=== PATIENT | male | born 1950 | race Caucasian/White ===

== ENCOUNTER 2024-02-24 01:06 | Inpatient (IN) | payer OTHER ==
[2024-02-24] MEDS ORDERED: Furosemide 40 MG (4 mL) VIAL ONE (01:46)
[2024-02-24] MEDS ORDERED: Magnesium 2 GM/50 ML BAG (IN WATER) ONE (01:46)
[2024-02-24] MEDS ORDERED: methylPREDNISolone Sod Succ/PF 125 MG/2 ML VIAL ONE (01:47)
[2024-02-24] MEDS ORDERED: Sodium Chloride 0.9% 100 ML ONE (01:47)
[2024-02-24] MEDS ORDERED: Cefepime 2 GM VIAL ONE (01:47)
[2024-02-24 01:52] LABS: #Basophils Less than 0.03 10x3/uL (0.0-0.2); %Basophils 0.3 % (0.0-1.0); %Eosinophils 0.4 % (0.0-10.0); %Lymphocytes 12.1 % (21.0-51.0); %Monocytes 4.1 % (0.0-10.0); %Neutrophils 82.7 % (42.0-75.0); Hematocrit 36.5 % (42.0-52.0); Hemoglobin 11.4 g/dL (14.0-18.0); Mean Corpuscular HGB CONC 31.2 g/dL (32.0-36.0); Mean Corpuscular Hemoglobin 31.6 pg (27.0-31.0); Mean Corpuscular Volume 101.1 fL (78.0-98.0); Mean Platelet Volume 10.2 fL (7.4-10.4); Platelet Count 220 10x3/uL (130-400); RBC Distribution Width 13.6 % (11.5-14.5); Red Blood Cell (RBC) Count 3.61 mill/uL (4.70-6.10)
[2024-02-24] MEDS ORDERED: Ipratropium/Albuterol 3 ML NEB ONE (01:52)
[2024-02-24] MEDS ORDERED: Albuterol 2.5 MG (3 mL) NEB ONE (01:52)
[2024-02-24] MEDS ORDERED: Albuterol 2.5 MG (0.5 mL) NEB ONE (01:52)
[2024-02-24 02:33] LABS: ALT (SGPT) 11 U/L (8-55); AST (SGOT) 19 U/L (5-34); Albumin 3.2 g/dL (3.4-4.8); Alkaline Phosphatase 85 U/L (40-110); Anion Gap 13 mmol/L (10-20); BUN (Urea Nitrogen) 23 mg/dL (8.4-25.7); Bilirubin, Total 0.4 mg/dL (0.2-1.2); Calc. Creatinine Clearance 0 mL/min (70-130); Calcium 8.7 mg/dL (7.8-10.44); Carbon Dioxide 23 mmol/L (23-31); Chloride 111 mmol/L (98-107); Estimated GFR 58; Globulin 3.7 g/dL (2.4-3.5); Glucose 108 mg/dL (83-110); Magnesium 1.6 mg/dL (1.6-2.6); Potassium 3.4 mmol/L (3.5-5.1); Protein, Total 6.9 g/dL (5.8-8.1); Sodium 144 mmol/L (136-145)
[2024-02-24 02:38] LABS: Troponin I 0.085 ng/mL (< 0.028)
[2024-02-24] MEDS ORDERED: NOREPINEPHRINE 8 MG/250 ML-D5W 0 ML ONE (03:08)
[2024-02-24 04:03] LABS: Bacteria/HPF None Seen HPF (None Seen); Bilirubin Negative (Negative); Blood, Urine Negative (Negative); CAUTI Indications for Culture Alt mental st,lethar; Clarity Clear (Clear); Glucose, Urine (Dipstick) Normal (Negative); Ketone, Urine Negative (Negative); Leukocyte Negative Leu/uL (Negative); Nitrite Negative (Negative); Protein, Urine (Dipstick) Negative (Neg-Trace); RBC/HPF 0-3 HPF (0-3); Specific Gravity, Urine 1.003 (1.002-1.036); Squamous Epithelial None Seen HPF (0-3); Urobilinogen Normal mg/dL (Less than 2); WBC/HPF 0-3 HPF (0-3); pH, Urine 5.5 (5.0-9.0)
[2024-02-24 04:07] LABS: Urine Culture Reflex No No
[2024-02-24] MEDS ORDERED: Acetaminophen 650 MG Suppository PR PRN (04:32)
[2024-02-24] MEDS ORDERED: Ondansetron ODT 4 MG TAB PO PRN (04:32)
[2024-02-24] MEDS ORDERED: Ondansetron PF 4 MG/2 ML Vial IVP PRN (04:32)
[2024-02-24] MEDS ORDERED: traMADol HCl 50 MG TAB PO PRN ×2 (04:32)
[2024-02-24] MEDS ORDERED: Ipratropium/Albuterol 3 ML NEB NEB PRN (04:44)
[2024-02-24 07:32] LABS: Lactic Acid 6.28 mmol/L (0.5-2.2)
[2024-02-24] MEDS: Vancomycin (BATCH) 2.5 GM in Premix 1 BAG IVPB SCH (07:37)
[2024-02-24 07:41] VITALS: BMI 32.8
[2024-02-24] MEDS: Lactated Ringer's 1,000 ML IV SCH (07:45)
[2024-02-24] MEDS: Azithromycin 500 MG in Sodium Chloride 0.9% 250 ML 250 ML IVPB SCH (07:48)
[2024-02-24] MEDS: methylPREDNISolone Sod Succ 40 MG VIAL IVP SCH ×2 (07:51→10:32)
[2024-02-24] MEDS: cefTRIAXone\\ROCEPHIN 2 GM in Sodium Chloride 0.9% 100 ML IVPB SCH (08:06)
[2024-02-24 08:21] LABS: Troponin I 0.085 ng/mL (< 0.028)
[2024-02-24] MEDS: Ipratropium/Albuterol 3 ML NEB NEB SCH (08:48)
[2024-02-24] MEDS ORDERED: Vancomycin 1.5 GM in Sodium Chloride 0.9% 250 ML 300 ML IVPB SCH (09:00)
[2024-02-24] MEDS ORDERED: Iopamidol-370 76% 500 ML MDV (1 ML CHARGE) ONE (09:07)
[2024-02-24 09:35] LABS: Actual Bicarbonate (HCO3v) 17.5 mEq/L (22-28); Base Excess -7.3 mEq/L (-2.0 to +3.0); Calcium, Ionized (venous) 1.04 mmol/L (1.16-1.32); Chloride (VBG) 108 mmol/L (98-106); Hematocrit-VBG 33 % (42.0-52.0); Hemoglobin (Hb) 11.2 g/dL (12.6-17.4); Potassium (VBG) 3.61 mmol/L (3.70-5.30); pH (venous) 7.343 (7.32-7.43)
[2024-02-24] MEDS: Famotidine 20 MG TAB PO SCH (10:31)
[2024-02-24] MEDS: Aspirin 81 mg Enteric Coated Tablet PO SCH (10:31)
[2024-02-24] MEDS: Pantoprazole 40 MG VIAL IVP SCH (10:32)
[2024-02-24] MEDS: Enoxaparin 40 MG (0.4 mL) SYRINGE SC SCH (10:32)
[2024-02-24 12:12] LABS: Troponin I 0.051 ng/mL (< 0.028)
[2024-02-24 14:06] LABS: Lactic Acid 7.08 mmol/L (0.5-2.2)
[2024-02-24] MEDS ORDERED: Vancomycin (BATCH) 1.5 GM in Premix 1 BAG IVPB SCH ×2 (16:00→16:30)
[2024-02-24] MEDS: Vancomycin (BATCH) 1.5 GM in Premix 1 BAG IVPB SCH (20:33)
[2024-02-25] MEDS: Acetaminophen 325 MG TAB PO PRN (05:18)
[2024-02-25 05:31] LABS: Hematocrit 30.7 % (42.0-52.0); Hemoglobin 9.9 g/dL (14.0-18.0); Mean Corpuscular HGB CONC 32.2 g/dL (32.0-36.0); Mean Corpuscular Volume 99.4 fL (78.0-98.0); Mean Platelet Volume 10.7 fL (7.4-10.4); Platelet Count 177 10x3/uL (130-400); RBC Distribution Width 14.3 % (11.5-14.5); Red Blood Cell (RBC) Count 3.09 mill/uL (4.70-6.10)
[2024-02-25 05:47] LABS: Lactic Acid 2.78 mmol/L (0.5-2.2)
[2024-02-25 05:49] LABS: Vancomycin, Random 28.6 ug/mL (See Comment)
[2024-02-25 05:51] LABS: Anion Gap 10 mmol/L (10-20); BUN (Urea Nitrogen) 27 mg/dL (8.4-25.7); Calc. Creatinine Clearance 75 mL/min (70-130); Calcium 8.8 mg/dL (7.8-10.44); Carbon Dioxide 27 mmol/L (23-31); Chloride 107 mmol/L (98-107); Estimated GFR 59; Glucose 111 mg/dL (83-110); Potassium 3.9 mmol/L (3.5-5.1); Sodium 140 mmol/L (136-145)
[2024-02-25 06:29] LABS: Anisocytosis SLIGHT = 6-15 cells HPF (0-5); Band 23 % (5-11); Dohle Bodies SLIGHT; Lymphocytes 2 % (21-51); Monocytes 3 % (0-10); Neutrophil 72 % (42-75); Platelet Adequacy Comment Platelets Normal; Polychromasia SLIGHT = 2-3 cells HPF (0-2); Toxic Granulation SLIGHT
[2024-02-25] MEDS: FLU (Fluad Triv) TS24-25 (65UP)/MF59C/PF 45 MCG/0.5 ML Syringe IM ONE (12:42)
[2024-02-25] MEDS: Vancomycin (BATCH) 1.25 GM in Premix 1 BAG IVPB SCH (12:43)
[2024-02-25 15:14] VITALS: BMI 34.1
[2024-02-25] MEDS: Ampicillin/Sulbactam 3 GM in Sodium Chloride 0.9% 100 ML IVPB SCH (23:07)
[2024-02-25] MEDS ORDERED: Ampicillin/Sulbactam 3 GM in Sodium Chloride 0.9% 100 ML IVPB SCH (23:59)
[2024-02-27 07:06] LABS: Anion Gap 13 mmol/L (10-20); BUN (Urea Nitrogen) 24 mg/dL (8.4-25.7); Calc. Creatinine Clearance 116 mL/min (70-130); Calcium 8.9 mg/dL (7.8-10.44); Carbon Dioxide 22 mmol/L (23-31); Chloride 110 mmol/L (98-107); Estimated GFR 91; Glucose 103 mg/dL (83-110); Potassium 3.6 mmol/L (3.5-5.1); Sodium 141 mmol/L (136-145)
[2024-02-27 07:08] LABS: Hematocrit 29.5 % (42.0-52.0); Hemoglobin 9.4 g/dL (14.0-18.0); Mean Corpuscular HGB CONC 31.9 g/dL (32.0-36.0); Mean Corpuscular Hemoglobin 31.8 pg (27.0-31.0); Mean Corpuscular Volume 99.7 fL (78.0-98.0); Mean Platelet Volume 10.4 fL (7.4-10.4); Platelet Count 173 10x3/uL (130-400); RBC Distribution Width 14.3 % (11.5-14.5); Red Blood Cell (RBC) Count 2.96 mill/uL (4.70-6.10)
[2024-02-27 07:09] LABS: Lactic Acid 0.88 mmol/L (0.5-2.2)
[2024-02-27 07:34] LABS: Band 13 % (5-11); Burr Cells MODERATE= 6-15 cells HPF (0-1); Eosinophils 1 % (0-10); Hypochromia SLIGHT = 6-15 cells HPF (0-5); Lymphocytes 5 % (21-51); Macrocytosis SLIGHT = 6-15 cells HPF (0-5); Monocytes 3 % (0-10); Neutrophil 78 % (42-75); Ovalocytes SLIGHT = 2-5 cells HPF (0-1); Platelet Adequacy Comment Platelets Normal; Polychromasia SLIGHT = 2-3 cells HPF (0-2); Target Cells SLIGHT = 2-5 cells HPF (0-1)
[2024-02-27] MEDS: Potassium Chloride 20 MEQ TAB PO SCH (09:19)
[2024-02-27] MEDS: methylPREDNISolone Sod Succ 40 MG VIAL IVP SCH (09:21)
[2024-02-28 05:32] LABS: #Basophils 0.03 10x3/uL (0.0-0.2); %Basophils 0.4 % (0.0-1.0); %Eosinophils 0.7 % (0.0-10.0); %Lymphocytes 13.8 % (21.0-51.0); %Monocytes 10.3 % (0.0-10.0); %Neutrophils 74.3 % (42.0-75.0); Hematocrit 28.4 % (42.0-52.0); Hemoglobin 9.3 g/dL (14.0-18.0); Mean Corpuscular HGB CONC 32.7 g/dL (32.0-36.0); Mean Corpuscular Hemoglobin 31.1 pg (27.0-31.0); Mean Platelet Volume 11.9 fL (7.4-10.4); Platelet Count 165 10x3/uL (130-400); RBC Distribution Width 14.5 % (11.5-14.5); Red Blood Cell (RBC) Count 2.99 mill/uL (4.70-6.10)
[2024-02-28 05:41] LABS: Anion Gap 12 mmol/L (10-20); BUN (Urea Nitrogen) 27 mg/dL (8.4-25.7); Calc. Creatinine Clearance 94 mL/min (70-130); Calcium 8.7 mg/dL (7.8-10.44); Carbon Dioxide 21 mmol/L (23-31); Chloride 112 mmol/L (98-107); Estimated GFR 77; Glucose 100 mg/dL (83-110); Magnesium 2.1 mg/dL (1.6-2.6); Potassium 3.9 mmol/L (3.5-5.1); Sodium 141 mmol/L (136-145)
[2024-02-28] MEDS ORDERED: AFRIN NASAL MIST 15 ML BOT NS PRN (09:18)
[2024-02-28] MEDS ORDERED: Oxymetazoline HCl 0.05% (30 ML BOT) NS PRN (09:22)
[2024-02-28] MEDS: predniSONE 20 MG TAB PO SCH (09:23)
[2024-02-29 04:38] LABS: #Basophils 0.04 10x3/uL (0.0-0.2); %Basophils 0.5 % (0.0-1.0); %Eosinophils 2.1 % (0.0-10.0); %Monocytes 8.7 % (0.0-10.0); %Neutrophils 69.8 % (42.0-75.0); Hematocrit 32.6 % (42.0-52.0); Hemoglobin 10.4 g/dL (14.0-18.0); Mean Corpuscular HGB CONC 31.9 g/dL (32.0-36.0); Mean Corpuscular Hemoglobin 31.4 pg (27.0-31.0); Mean Corpuscular Volume 98.5 fL (78.0-98.0); Mean Platelet Volume 10.8 fL (7.4-10.4); Platelet Count 249 10x3/uL (130-400); RBC Distribution Width 14.2 % (11.5-14.5); Red Blood Cell (RBC) Count 3.31 mill/uL (4.70-6.10)
[2024-02-29 04:52] LABS: Anion Gap 10 mmol/L (10-20); BUN (Urea Nitrogen) 24 mg/dL (8.4-25.7); Calc. Creatinine Clearance 91 mL/min (70-130); Calcium 8.9 mg/dL (7.8-10.44); Carbon Dioxide 26 mmol/L (23-31); Chloride 111 mmol/L (98-107); Estimated GFR 74; Glucose 90 mg/dL (83-110); Magnesium 2.1 mg/dL (1.6-2.6); Potassium 4.1 mmol/L (3.5-5.1); Sodium 143 mmol/L (136-145)
[2024-02-29] MEDS: Furosemide 40 MG TAB PO SCH (22:37)
[2024-03-01] MEDS: predniSONE 5 MG TAB PO SCH (07:51)
[2024-03-01] MEDS: Furosemide 40 MG TAB PO SCH (15:11)
[2024-03-01] MEDS: Famotidine 20 MG TAB PO SCH (21:27)
[2024-03-02 16:33] VITALS: BP 131/80; TEMP 98.5
== END 2024-03-02 17:22 | DRG 871 ==
LOC: ERS 01:06 → SUATTDRO 01:06 → ERHOLD 04:30 → IMCU/EMU 06:36 → 2NO 02-26 22:59 → MSONC 02-29 17:39
PROVIDERS: ADMIT Family Medicine; ATTEND Student in an Organized Health Care Education/Training Program
PROC: 3E03329 Introduction of Other Anti-infective into Peripheral Vein, Percutaneous Approach (ICD-10-PCS; principal; 2024-02-24)
PROC: 3E033XZ Introduction of Vasopressor into Peripheral Vein, Percutaneous Approach (ICD-10-PCS; 2024-02-24)
DX: A40.9 Streptococcal sepsis, unspecified (principal); G93.41 Metabolic encephalopathy; R65.21 Severe sepsis with septic shock; J69.0 Pneumonitis due to inhalation of food and vomit; J96.01 Acute respiratory failure with hypoxia; J44.1 Chronic obstructive pulmonary disease with (acute) exacerbation; I50.22 Chronic systolic (congestive) heart failure; L03.115 Cellulitis of right lower limb; N40.0 Benign prostatic hyperplasia without lower urinary tract symptoms; M19.90 Unspecified osteoarthritis, unspecified site; K21.9 Gastro-esophageal reflux disease without esophagitis; R04.0 Epistaxis; B35.1 Tinea unguium; K40.90 Unilateral inguinal hernia, without obstruction or gangrene, not specified as recurrent; Z79.82 Long term (current) use of aspirin; Z79.899 Other long term (current) drug therapy; Z79.84 Long term (current) use of oral hypoglycemic drugs
CPT/HCPCS: 36415; 36416; 70450; 71045; 71275; 74176; 80048; 80053; 80202; 81001; 82805; 83605; 83735; 83880; 84484; 85025; 87040; 87077; 87081; 87086; 87149; 87186; 87428; 93005; 93306; 94640; 94644; 94660; 94760; 96361; 96365; 96366; 96375; J0295; J0456; J0692; J0696; J1650; J1940; J2470; J2919; J3370; J3475; J7050; J7120; J7512; J7611; J7620; Q9967

== ENCOUNTER 2024-03-21 17:03 | Inpatient (IN) | payer OTHER ==
[2024-03-22 00:30] VITALS: BMI 30.5
[2024-03-22] MEDS: Acetaminophen 325 MG TAB PO SCH (02:20)
[2024-03-22] MEDS: Cefepime 1 GM in Sodium Chloride 0.9% 100 ML IVPB SCH (02:20)
[2024-03-22] MEDS: Vancomycin (BATCH) 2.5 GM in Premix 1 BAG IVPB SCH (02:21)
[2024-03-22] MEDS: Vancomycin (BATCH) 1.5 GM in Premix 1 BAG IVPB SCH (02:31)
[2024-03-22 04:52] LABS: ALT (SGPT) 9 U/L (8-55); AST (SGOT) 21 U/L (5-34); Albumin 1.9 g/dL (3.4-4.8); Alkaline Phosphatase 84 U/L (40-110); Anion Gap 15 mmol/L (10-20); BUN (Urea Nitrogen) 46 mg/dL (8.4-25.7); Calc. Creatinine Clearance 38 mL/min (70-130); Calcium 8.3 mg/dL (7.8-10.44); Carbon Dioxide 16 mmol/L (23-31); Chloride 106 mmol/L (98-107); Estimated GFR 29; Globulin 3.7 g/dL (2.4-3.5); Glucose 119 mg/dL (83-110); Potassium 4.3 mmol/L (3.5-5.1); Protein, Total 5.6 g/dL (5.8-8.1); Sodium 133 mmol/L (136-145)
[2024-03-22] MEDS: Famotidine/PF 20 mg/2ml Vial SLOW IVP SCH (09:25)
[2024-03-22] MEDS: Loratadine 10 MG TAB PO SCH (09:28)
[2024-03-22] MEDS: Aripiprazole 10 MG TAB PO SCH (09:28)
[2024-03-22] MEDS: Cyanocobalamin (Vitamin B-12) 1,000 MCG TAB PO SCH (09:28)
[2024-03-22] MEDS: Famotidine 20 MG TAB PO SCH (09:28)
[2024-03-22] MEDS: Ferrous Sulfate 325 MG TAB PO SCH (09:29)
[2024-03-22] MEDS: Potassium Chloride 20 MEQ TAB PO SCH (09:29)
[2024-03-22] MEDS: predniSONE 5 MG TAB PO SCH (09:29)
[2024-03-22] MEDS: Calcium Carbonate 600 MG + Vit D TAB PO SCH (09:29)
[2024-03-22] MEDS: Aspirin 81 mg Enteric Coated Tablet PO SCH (09:30)
[2024-03-22] MEDS: Sertraline 25 MG TAB PO SCH (09:30)
[2024-03-22] MEDS: Ondansetron PF 4 MG/2 ML Vial IVP PRN (09:30)
[2024-03-22] MEDS: Docusate 100 MG CAP PO SCH (09:31)
[2024-03-22] MEDS: Ondansetron ODT 4 MG TAB PO PRN (09:42)
[2024-03-22 09:47] LABS: Band 34 % (5-11); Eosinophils 2 % (0-10); Lymphocytes 4 % (21-51); Metamyelocyte 1 % (0-0); Monocytes 17 % (0-10); Neutrophil 41 % (42-75); Platelet Adequacy Comment Platelets Normal; Reactive Lymphocytes 2 % (0-10)
[2024-03-22 09:49] LABS: Hematocrit 35.3 % (42.0-52.0); Hemoglobin 11.6 g/dL (14.0-18.0); Mean Corpuscular HGB CONC 32.9 g/dL (32.0-36.0); Mean Corpuscular Hemoglobin 30.6 pg (27.0-31.0); Mean Corpuscular Volume 93.1 fL (78.0-98.0); Platelet Count 214 10x3/uL (130-400); RBC Distribution Width 13.9 % (11.5-14.5); Red Blood Cell (RBC) Count 3.79 mill/uL (4.70-6.10)
[2024-03-22] MEDS ORDERED: Vancomycin Dose by Levels Sliding Scale (Wt 71-99) FS SCH (11:15)
[2024-03-22] MEDS ORDERED: Vancomycin 1 GM in Premix 1 BAG IVPB SCH (12:00)
[2024-03-22] MEDS: Cefepime 2 GM in Sodium Chloride 0.9% 100 ML IVPB SCH (14:50)
[2024-03-22] MEDS: Sodium Bicarbonate 150 MEQ in Dextrose 5% in Water 1,000 ML IV SCH (14:50)
[2024-03-22 20:15] LABS: Vancomycin, Trough 27.6 ug/mL
[2024-03-22] MEDS: Milk Of Magnesia 30 ML UDCUP PO SCH (21:31)
[2024-03-23 04:46] LABS: Hematocrit 33.5 % (42.0-52.0); Hemoglobin 11.1 g/dL (14.0-18.0); Mean Corpuscular HGB CONC 33.1 g/dL (32.0-36.0); Mean Corpuscular Hemoglobin 30.3 pg (27.0-31.0); Mean Corpuscular Volume 91.5 fL (78.0-98.0); Mean Platelet Volume 11.2 fL (7.4-10.4); Platelet Count 238 10x3/uL (130-400); Red Blood Cell (RBC) Count 3.66 mill/uL (4.70-6.10)
[2024-03-23 05:07] LABS: ALT (SGPT) 9 U/L (8-55); AST (SGOT) 18 U/L (5-34); Albumin 1.6 g/dL (3.4-4.8); Alkaline Phosphatase 83 U/L (40-110); Anion Gap 13 mmol/L (10-20); BUN (Urea Nitrogen) 56 mg/dL (8.4-25.7); Bilirubin, Total 0.4 mg/dL (0.2-1.2); Calc. Creatinine Clearance 38 mL/min (70-130); Calcium 8.2 mg/dL (7.8-10.44); Carbon Dioxide 22 mmol/L (23-31); Chloride 103 mmol/L (98-107); Estimated GFR 29; Globulin 3.8 g/dL (2.4-3.5); Glucose 131 mg/dL (83-110); Potassium 4.1 mmol/L (3.5-5.1); Protein, Total 5.4 g/dL (5.8-8.1); Sodium 134 mmol/L (136-145)
[2024-03-23 05:25] LABS: Band 30 % (5-11); Burr Cells SLIGHT = 2-5 cells HPF (0-1); Lymphocytes 5 % (21-51); Monocytes 8 % (0-10); Neutrophil 58 % (42-75); Platelet Adequacy Comment Platelets Normal; Poikilocytosis MODERATE=16-30 cells HPF (0-5)
[2024-03-23] MEDS: Famotidine 20 MG TAB PO SCH (10:02)
[2024-03-23] MEDS: Loperamide HCl 2 MG CAP PO PRN (10:02)
[2024-03-23] MEDS: Sodium Chloride 0.9% 1,000 ML IV SCH (10:03)
[2024-03-23] MEDS: Saccharomyces boulardii 250 MG CAP PO SCH (11:30)
[2024-03-23 21:14] LABS: Vancomycin, Trough 12.7 ug/mL
[2024-03-23] MEDS: Vancomycin HCl 750 MG in Sodium Chloride 0.9% 250 ML 250 ML IVPB SCH (23:29)
[2024-03-24 04:40] LABS: Hematocrit 29.6 % (42.0-52.0); Hemoglobin 9.9 g/dL (14.0-18.0); Mean Corpuscular HGB CONC 33.4 g/dL (32.0-36.0); Mean Corpuscular Hemoglobin 31.2 pg (27.0-31.0); Mean Corpuscular Volume 93.4 fL (78.0-98.0); Mean Platelet Volume 10.4 fL (7.4-10.4); Platelet Count 240 10x3/uL (130-400); RBC Distribution Width 14.1 % (11.5-14.5); Red Blood Cell (RBC) Count 3.17 mill/uL (4.70-6.10)
[2024-03-24 04:51] LABS: Anion Gap 9 mmol/L (10-20); BUN (Urea Nitrogen) 56 mg/dL (8.4-25.7); Calc. Creatinine Clearance 53 mL/min (70-130); Calcium 8.6 mg/dL (7.8-10.44); Carbon Dioxide 24 mmol/L (23-31); Chloride 104 mmol/L (98-107); Estimated GFR 42; Glucose 111 mg/dL (83-110); Potassium 4.9 mmol/L (3.5-5.1); Sodium 132 mmol/L (136-145)
[2024-03-24 05:17] LABS: Anisocytosis SLIGHT = 6-15 cells HPF (0-5); Band 11 % (5-11); Burr Cells SLIGHT = 2-5 cells HPF (0-1); Dohle Bodies SLIGHT; Eosinophils 2 % (0-10); Lymphocytes 7 % (21-51); Monocytes 13 % (0-10); Neutrophil 67 % (42-75); Platelet Adequacy Comment Platelets Normal; Polychromasia SLIGHT = 2-3 cells HPF (0-2); Toxic Granulation SLIGHT
[2024-03-24] MEDS: Saccharomyces boulardii 250 MG CAP PO SCH (09:25)
[2024-03-24] MEDS: Sodium Chloride 0.9% 1,000 ML IV SCH ×2 (13:05→18:00)
[2024-03-24] MEDS: Acetaminophen 650 MG Suppository PR PRN (15:28)
[2024-03-24 21:36] LABS: Vancomycin, Trough 13.2 ug/mL
[2024-03-24] MEDS: Sodium Chloride 0.9% 250 ML IV SCH (21:45)
[2024-03-24] MEDS: Sodium Chloride 0.9% 500 ML IV SCH (21:49)
[2024-03-24] MEDS: Albumin 25% 25 GM (100 mL) BOT IVPB SCH (22:00)
[2024-03-24 22:19] LABS: Hematocrit 27.7 % (42.0-52.0); Mean Corpuscular HGB CONC 32.5 g/dL (32.0-36.0); Mean Corpuscular Hemoglobin 30.9 pg (27.0-31.0); Mean Corpuscular Volume 95.2 fL (78.0-98.0); Mean Platelet Volume 10.4 fL (7.4-10.4); Platelet Count 260 10x3/uL (130-400); RBC Distribution Width 14.5 % (11.5-14.5); Red Blood Cell (RBC) Count 2.91 mill/uL (4.70-6.10)
[2024-03-24 22:25] LABS: ALT (SGPT) 8 U/L (8-55); AST (SGOT) 20 U/L (5-34); Albumin 1.3 g/dL (3.4-4.8); Alkaline Phosphatase 62 U/L (40-110); Anion Gap 8 mmol/L (10-20); BUN (Urea Nitrogen) 50 mg/dL (8.4-25.7); Bilirubin, Total 0.3 mg/dL (0.2-1.2); Calc. Creatinine Clearance 76 mL/min (70-130); Calcium 8.1 mg/dL (7.8-10.44); Carbon Dioxide 20 mmol/L (23-31); Chloride 109 mmol/L (98-107); Estimated GFR 66; Globulin 3.5 g/dL (2.4-3.5); Glucose 129 mg/dL (83-110); Potassium 5.3 mmol/L (3.5-5.1); Protein, Total 4.8 g/dL (5.8-8.1); Sodium 132 mmol/L (136-145)
[2024-03-24 22:50] LABS: Band 9 % (5-11); Burr Cells SLIGHT = 2-5 cells HPF (0-1); Dohle Bodies SLIGHT; Elliptocytes SLIGHT = 2-5 cells HPF (0-1); Hypochromia SLIGHT = 6-15 cells HPF (0-5); Large Platelets 2.9 % (0-5); Lymphocytes 6 % (21-51); Macrocytosis SLIGHT = 6-15 cells HPF (0-5); Metamyelocyte 2 % (0-0); Monocytes 8 % (0-10); Neutrophil 76 % (42-75); Platelet Adequacy Comment Platelets Normal; Polychromasia SLIGHT = 2-3 cells HPF (0-2); Toxic Granulation SLIGHT
[2024-03-24] MEDS: Vancomycin HCl 750 MG in Sodium Chloride 0.9% 250 ML 250 ML IVPB SCH (23:51)
[2024-03-25] MEDS: LOKELMA 10 GM PACKET PO SCH (00:13)
[2024-03-25] MEDS: Albumin 25% 25 GM (100 mL) BOT IVPB SCH ×2 (01:46→23:52)
[2024-03-25 04:17] LABS: Hemoglobin 9.9 g/dL (14.0-18.0); Mean Corpuscular Hemoglobin 30.6 pg (27.0-31.0); Mean Corpuscular Volume 92.6 fL (78.0-98.0); Mean Platelet Volume 10.6 fL (7.4-10.4); Platelet Count 285 10x3/uL (130-400); RBC Distribution Width 14.5 % (11.5-14.5); Red Blood Cell (RBC) Count 3.24 mill/uL (4.70-6.10)
[2024-03-25 04:21] LABS: Anion Gap 9 mmol/L (10-20); BUN (Urea Nitrogen) 50 mg/dL (8.4-25.7); Calc. Creatinine Clearance 83 mL/min (70-130); Calcium 8.4 mg/dL (7.8-10.44); Carbon Dioxide 21 mmol/L (23-31); Chloride 109 mmol/L (98-107); Estimated GFR 73; Glucose 110 mg/dL (83-110); Potassium 4.8 mmol/L (3.5-5.1); Sodium 134 mmol/L (136-145)
[2024-03-25 04:47] LABS: Anisocytosis SLIGHT = 6-15 cells HPF (0-5); Band 34 % (5-11); Dohle Bodies SLIGHT; Eosinophils 2 % (0-10); Hypochromia SLIGHT = 6-15 cells HPF (0-5); Lymphocytes 4 % (21-51); Metamyelocyte 2 % (0-0); Monocytes 8 % (0-10); Neutrophil 50 % (42-75); Platelet Adequacy Comment Platelets Normal; Polychromasia SLIGHT = 2-3 cells HPF (0-2); Vacuoles SLIGHT
[2024-03-25] MEDS ORDERED: Albumin 25% 25 GM (100 mL) BOT IVPB SCH (12:00)
[2024-03-25 12:11] LABS: Actual Bicarbonate (HCO3a) 21.7 mEq/L (22-28); Base Excess (BEa) -2.6 mEq/L (-2.0 to +3.0); CO2 Tension 35.7 mmHg (35.0-45.0); Calcium, Ionized (arterial) 1.27 mmol/L (1.12-1.30); Carboxyhemoglobin (COHb) 1.3 gm% (0.0-3.0); Hematocrit-ABG 31 % (42.0-52.0); Hemoglobin (Hb) 10.7 g/dL (14.0-18.0); Potassium - ABG Lab 5.04 mmol/L (3.70-5.30); pH, Arterial 7.401 (7.35-7.45)
[2024-03-25 12:16] LABS: ALV-art Gradient 47.105 mmHg (0-20); Puncture Site Right Brachial art
[2024-03-25 16:25] LABS: Lactic Acid 1.27 mmol/L (0.5-2.2)
[2024-03-25 17:48] LABS: Troponin I Less than 0.010 ng/mL (< 0.028)
[2024-03-25] MEDS: VANCOMYCIN 1.25 GM/250 ML BAG 1.25 GM in Premix 1 BAG IVPB SCH (17:52)
[2024-03-25] MEDS ORDERED: Furosemide 40 MG in Sodium Chloride 0.9% 90 ML IVPB ONE (19:11)
[2024-03-25] MEDS ORDERED: Furosemide 40 MG (4 mL) VIAL SLOW IVP SCH (19:30)
[2024-03-25] MEDS: Furosemide 40 MG (4 mL) VIAL SLOW IVP SCH (21:25)
[2024-03-25] MEDS: Sodium Chloride 0.9% 500 ML IV SCH (23:51)
[2024-03-26] MEDS: Famotidine/PF 20 mg/2ml Vial SLOW IVP SCH (09:14)
[2024-03-26] MEDS: Famotidine 20 MG TAB PO SCH (09:17)
[2024-03-26 10:04] LABS: Hematocrit 36.3 % (42.0-52.0); Hemoglobin 11.7 g/dL (14.0-18.0); Mean Corpuscular HGB CONC 32.2 g/dL (32.0-36.0); Mean Corpuscular Hemoglobin 30.6 pg (27.0-31.0); Platelet Count 401 10x3/uL (130-400); RBC Distribution Width 14.9 % (11.5-14.5); Red Blood Cell (RBC) Count 3.82 mill/uL (4.70-6.10)
[2024-03-26 10:07] LABS: ALT (SGPT) 11 U/L (8-55); AST (SGOT) 18 U/L (5-34); Albumin 1.9 g/dL (3.4-4.8); Alkaline Phosphatase 72 U/L (40-110); Anion Gap 14 mmol/L (10-20); BUN (Urea Nitrogen) 56 mg/dL (8.4-25.7); Bilirubin, Total 0.5 mg/dL (0.2-1.2); Calc. Creatinine Clearance 65 mL/min (70-130); Calcium 9.4 mg/dL (7.8-10.44); Carbon Dioxide 19 mmol/L (23-31); Chloride 111 mmol/L (98-107); Estimated GFR 54; Globulin 3.6 g/dL (2.4-3.5); Glucose 115 mg/dL (83-110); Potassium 5.2 mmol/L (3.5-5.1); Protein, Total 5.5 g/dL (5.8-8.1); Sodium 139 mmol/L (136-145)
[2024-03-26 10:34] LABS: Anisocytosis SLIGHT = 6-15 cells HPF (0-5); Band 25 % (5-11); Lymphocytes 2 % (21-51); Monocytes 12 % (0-10); Neutrophil 62 % (42-75); Platelet Adequacy Comment Platelets Normal; Poikilocytosis SLIGHT = 6-15 cells HPF (0-5); Polychromasia SLIGHT = 2-3 cells HPF (0-2)
[2024-03-26] MEDS ORDERED: Iopamidol-370 76% 500 ML MDV (1 ML CHARGE) ONE (12:04)
[2024-03-26 14:33] LABS: Actual Bicarbonate (HCO3a) 17.5 mEq/L (22-28); Base Excess (BEa) -6.6 mEq/L (-2.0 to +3.0); CO2 Tension 30.7 mmHg (35.0-45.0); Calcium, Ionized (arterial) 1.36 mmol/L (1.12-1.30); Carboxyhemoglobin (COHb) 1.2 gm% (0.0-3.0); Hematocrit-ABG 35 % (42.0-52.0); Hemoglobin (Hb) 11.8 g/dL (14.0-18.0); O2 Tension (PaO2), arterial 69.3 mmHg (> 70.0); Potassium - ABG Lab 5.06 mmol/L (3.70-5.30); pH, Arterial 7.374 (7.35-7.45)
[2024-03-26 14:35] LABS: ALV-art Gradient 56.315 mmHg (0-20); Puncture Site Right Radial artery
[2024-03-26 14:53] LABS: Lactic Acid 1.62 mmol/L (0.5-2.2)
[2024-03-26 15:00] LABS: Bacteria/HPF None Seen HPF (None Seen); Bilirubin Negative (Negative); Blood, Urine 1+ (Negative); CAUTI Indications for Culture Alt mental st,lethar; Clarity Turbid (Clear); Glucose, Urine (Dipstick) Normal (Negative); Ketone, Urine 10 mg/dL (Negative); Leukocyte Negative Leu/uL (Negative); Nitrite Negative (Negative); Protein, Urine (Dipstick) 100 mg/dL (Neg-Trace); RBC/HPF 0-3 HPF (0-3); Specific Gravity, Urine 1.026 (1.002-1.036); Squamous Epithelial None Seen HPF (0-3); Urobilinogen Normal mg/dL (Less than 2); WBC/HPF 0-3 HPF (0-3); pH, Urine 5.5 (5.0-9.0)
[2024-03-26 15:03] LABS: Urine Culture Reflex No No
[2024-03-26] MEDS: Vancomycin 1 GM in Premix 1 BAG IVPB SCH (17:20)
[2024-03-26] MEDS: Hydrocortisone Sod Succ/PF 100 mg/2 ml Vial IVP SCH (19:23)
[2024-03-26 21:17] LABS: Base Excess (BEa) -4.6 mEq/L (-2.0 to +3.0); Calcium, Ionized (arterial) 1.37 mmol/L (1.12-1.30); Carboxyhemoglobin (COHb) 0.9 gm% (0.0-3.0); Hematocrit-ABG 34 % (42.0-52.0); Hemoglobin (Hb) 11.7 g/dL (14.0-18.0); O2 Tension (PaO2), arterial 73.3 mmHg (> 70.0); Potassium - ABG Lab 5.31 mmol/L (3.70-5.30); pH, Arterial 7.374 (7.35-7.45)
[2024-03-26 21:18] LABS: Puncture Site Left Radial artery
[2024-03-26] MEDS: Albumin 25% 25 GM (100 mL) BOT IVPB SCH (21:18)
[2024-03-26] MEDS: metroNIDAZOLE 500 MG in Premix 1 BAG IVPB SCH (21:18)
[2024-03-26 21:23] LABS: Hematocrit 33.9 % (42.0-52.0); Hemoglobin 11.1 g/dL (14.0-18.0); Mean Corpuscular HGB CONC 32.7 g/dL (32.0-36.0); Mean Corpuscular Hemoglobin 31.2 pg (27.0-31.0); Mean Corpuscular Volume 95.2 fL (78.0-98.0); Mean Platelet Volume 9.9 fL (7.4-10.4); Platelet Count 422 10x3/uL (130-400); Red Blood Cell (RBC) Count 3.56 mill/uL (4.70-6.10)
[2024-03-26 21:34] LABS: Lactic Acid 1.24 mmol/L (0.5-2.2)
[2024-03-26 21:38] LABS: ALT (SGPT) 13 U/L (8-55); AST (SGOT) 22 U/L (5-34); Albumin 1.6 g/dL (3.4-4.8); Alkaline Phosphatase 70 U/L (40-110); Anion Gap 13 mmol/L (10-20); BUN (Urea Nitrogen) 62 mg/dL (8.4-25.7); Bilirubin, Total 0.4 mg/dL (0.2-1.2); Calc. Creatinine Clearance 52 mL/min (70-130); Calcium 9.2 mg/dL (7.8-10.44); Carbon Dioxide 16 mmol/L (23-31); Chloride 114 mmol/L (98-107); Estimated GFR 41; Globulin 3.3 g/dL (2.4-3.5); Glucose 134 mg/dL (83-110); Glucose POC Confirmation 134 mg/dL (83-110); Potassium 5.4 mmol/L (3.5-5.1); Protein, Total 4.9 g/dL (5.8-8.1); Sodium 138 mmol/L (136-145)
[2024-03-26 21:52] LABS: Anisocytosis SLIGHT = 6-15 cells HPF (0-5); Band 15 % (5-11); Burr Cells SLIGHT = 2-5 cells HPF (0-1); Dohle Bodies SLIGHT; Macrocytosis SLIGHT = 6-15 cells HPF (0-5); Metamyelocyte 1 % (0-0); Monocytes 5 % (0-10); Myelocyte 3 % (0-0); Neutrophil 75 % (42-75); Platelet Adequacy Comment Platelets Normal; Poikilocytosis SLIGHT = 6-15 cells HPF (0-5); Polychromasia SLIGHT = 2-3 cells HPF (0-2); Promyelocytes 1 % (0-0); Toxic Granulation MODERATE
[2024-03-27] MEDS: Albumin 25% 25 GM (100 mL) BOT IVPB SCH ×2 (01:17→03:13)
[2024-03-27] MEDS: Sodium Bicarbonate 150 MEQ in Sterile Water 1,000 ML IV SCH (03:54)
[2024-03-27 05:25] LABS: Hematocrit 30.6 % (42.0-52.0); Mean Corpuscular HGB CONC 32.7 g/dL (32.0-36.0); Mean Corpuscular Hemoglobin 30.7 pg (27.0-31.0); Mean Corpuscular Volume 93.9 fL (78.0-98.0); Mean Platelet Volume 10.3 fL (7.4-10.4); Platelet Count 409 10x3/uL (130-400); RBC Distribution Width 15.2 % (11.5-14.5); Red Blood Cell (RBC) Count 3.26 mill/uL (4.70-6.10)
[2024-03-27 05:37] LABS: INR-International Normal Ratio 1.2; Prothrombin Time 15.2 sec (12.0-14.7)
[2024-03-27 05:38] LABS: PTT 36.6 sec (22.9-36.1)
[2024-03-27 05:40] LABS: Anion Gap 15 mmol/L (10-20); BUN (Urea Nitrogen) 66 mg/dL (8.4-25.7); Calc. Creatinine Clearance 48 mL/min (70-130); Calcium 9.5 mg/dL (7.8-10.44); Carbon Dioxide 18 mmol/L (23-31); Chloride 113 mmol/L (98-107); Estimated GFR 38; Glucose 128 mg/dL (83-110); Magnesium 4.7 mg/dL (1.6-2.6); Potassium 5.7 mmol/L (3.5-5.1); Sodium 140 mmol/L (136-145)
[2024-03-27] MEDS ORDERED: Dextrose 50% Abboject 50 ML SYRINGE SLOW IVP PRN (06:04)
[2024-03-27 06:09] LABS: Anisocytosis SLIGHT = 6-15 cells HPF (0-5); Band 15 % (5-11); Burr Cells SLIGHT = 2-5 cells HPF (0-1); Lymphocytes 1 % (21-51); Metamyelocyte 1 % (0-0); Microcytosis SLIGHT = 6-15 cells HPF (0-5); Monocytes 5 % (0-10); Neutrophil 78 % (42-75); Platelet Adequacy Comment Platelets Normal; Polychromasia SLIGHT = 2-3 cells HPF (0-2); Target Cells SLIGHT = 2-5 cells HPF (0-1); Toxic Granulation SLIGHT
[2024-03-27] MEDS: Insulin Regular, Human 100 UNIT/ML 10 ML VIAL IVP SCH (06:28)
[2024-03-27 08:24] LABS: Anion Gap 11 mmol/L (10-20); BUN (Urea Nitrogen) 69 mg/dL (8.4-25.7); Calc. Creatinine Clearance 47 mL/min (70-130); Calcium 9.4 mg/dL (7.8-10.44); Carbon Dioxide 20 mmol/L (23-31); Chloride 113 mmol/L (98-107); Estimated GFR 37; Glucose 137 mg/dL (83-110); Potassium 5.3 mmol/L (3.5-5.1); Sodium 139 mmol/L (136-145)
[2024-03-27 08:26] LABS: ALT (SGPT) 15 U/L (8-55); AST (SGOT) 26 U/L (5-34); Albumin 2.2 g/dL (3.4-4.8); Alkaline Phosphatase 65 U/L (40-110); Bilirubin, Direct 0.3 mg/dL (0.1-0.3); Bilirubin, Total 0.4 mg/dL (0.2-1.2); Protein, Total 5.2 g/dL (5.8-8.1)
[2024-03-27] MEDS: Heparin 5,000 UNITS/ML VIAL SC SCH (08:57)
[2024-03-27] MEDS: Famotidine/PF 20 mg/2ml Vial SLOW IVP SCH (08:57)
[2024-03-27] MEDS: Famotidine 20 MG TAB PO SCH (08:58)
[2024-03-27] MEDS: Midodrine HCl 5 MG TAB PO SCH (15:15)
[2024-03-27] MEDS: Vancomycin HCl 750 MG in Sodium Chloride 0.9% 250 ML 250 ML IVPB SCH (17:25)
[2024-03-28] MEDS: Midodrine HCl 5 MG TAB PO SCH (03:12)
[2024-03-28] MEDS: Sodium Chloride 0.9% 500 ML IV SCH (04:03)
[2024-03-28] MEDS: Sodium Chloride 0.9% 1,000 ML IV SCH (04:03)
[2024-03-28] MEDS: Morphine 2 MG/ML VIAL SLOW IVP SCH (04:03)
[2024-03-28] MEDS: Albumin 25% 25 GM (100 mL) BOT IVPB SCH (04:05)
[2024-03-28 04:39] LABS: Vancomycin, Random 31.3 ug/mL (See Comment)
[2024-03-28 04:43] LABS: Anion Gap 13 mmol/L (10-20); BUN (Urea Nitrogen) 79 mg/dL (8.4-25.7); Calc. Creatinine Clearance 43 mL/min (70-130); Calcium 9.6 mg/dL (7.8-10.44); Carbon Dioxide 17 mmol/L (23-31); Chloride 116 mmol/L (98-107); Estimated GFR 33; Glucose 110 mg/dL (83-110); Magnesium 4.2 mg/dL (1.6-2.6); Potassium 4.8 mmol/L (3.5-5.1); Sodium 141 mmol/L (136-145)
[2024-03-28 05:10] LABS: Hematocrit 33.2 % (42.0-52.0); Hemoglobin 10.9 g/dL (14.0-18.0); Mean Corpuscular HGB CONC 32.8 g/dL (32.0-36.0); Mean Corpuscular Hemoglobin 30.4 pg (27.0-31.0); Mean Corpuscular Volume 92.7 fL (78.0-98.0); Mean Platelet Volume 10.5 fL (7.4-10.4); Platelet Count 454 10x3/uL (130-400); RBC Distribution Width 15.2 % (11.5-14.5); Red Blood Cell (RBC) Count 3.58 mill/uL (4.70-6.10)
[2024-03-28 08:02] LABS: Band 16 % (5-11); Burr Cells SLIGHT = 2-5 cells HPF (0-1); Dohle Bodies SLIGHT; Lymphocytes 2 % (21-51); Monocytes 5 % (0-10); Neutrophil 76 % (42-75); Platelet Adequacy Comment Platelets Increased; Polychromasia SLIGHT = 2-3 cells HPF (0-2); Reactive Lymphocytes 1 % (0-10)
[2024-03-28] MEDS: Vancomycin HCl 125 MG Capsule PO SCH ×2 (12:56→18:20)
[2024-03-28] MEDS ORDERED: Vancomycin HCl 500 MG in Sodium Chloride 0.9% 100 ML IVPB SCH (17:00)
[2024-03-29 07:07] LABS: Vancomycin, Random 25.1 ug/mL (See Comment)
[2024-03-29 07:11] LABS: Anion Gap 11 mmol/L (10-20); BUN (Urea Nitrogen) 99 mg/dL (8.4-25.7); Calc. Creatinine Clearance 38 mL/min (70-130); Calcium 9.4 mg/dL (7.8-10.44); Carbon Dioxide 18 mmol/L (23-31); Chloride 116 mmol/L (98-107); Estimated GFR 28; Glucose 151 mg/dL (83-110); Magnesium 4.2 mg/dL (1.6-2.6); Potassium 5.1 mmol/L (3.5-5.1); Sodium 140 mmol/L (136-145)
[2024-03-29 07:54] LABS: Hematocrit 32.7 % (42.0-52.0); Hemoglobin 10.5 g/dL (14.0-18.0); Mean Corpuscular HGB CONC 32.1 g/dL (32.0-36.0); Mean Corpuscular Hemoglobin 30.2 pg (27.0-31.0); Mean Platelet Volume 10.5 fL (7.4-10.4); Platelet Count 432 10x3/uL (130-400); RBC Distribution Width 15.6 % (11.5-14.5); Red Blood Cell (RBC) Count 3.48 mill/uL (4.70-6.10)
[2024-03-29 08:07] LABS: Band 15 % (5-11); Burr Cells SLIGHT = 2-5 cells HPF (0-1); Lymphocytes 3 % (21-51); Monocytes 2 % (0-10); Neutrophil 80 % (42-75); Platelet Adequacy Comment Platelets Increased; Polychromasia SLIGHT = 2-3 cells HPF (0-2)
[2024-03-30 04:50] LABS: Hematocrit 30.5 % (42.0-52.0); Hemoglobin 10.1 g/dL (14.0-18.0); Mean Corpuscular HGB CONC 33.1 g/dL (32.0-36.0); Mean Corpuscular Hemoglobin 30.1 pg (27.0-31.0); Platelet Count 410 10x3/uL (130-400); RBC Distribution Width 15.8 % (11.5-14.5); Red Blood Cell (RBC) Count 3.35 mill/uL (4.70-6.10)
[2024-03-30 04:57] LABS: Anion Gap 11 mmol/L (10-20); BUN (Urea Nitrogen) 107 mg/dL (8.4-25.7); Calc. Creatinine Clearance 36 mL/min (70-130); Calcium 8.9 mg/dL (7.8-10.44); Carbon Dioxide 17 mmol/L (23-31); Chloride 119 mmol/L (98-107); Estimated GFR 26; Glucose 146 mg/dL (83-110); Potassium 5.2 mmol/L (3.5-5.1); Sodium 142 mmol/L (136-145)
[2024-03-30 05:33] LABS: Anisocytosis SLIGHT = 6-15 cells HPF (0-5); Band 13 % (5-11); Hypochromia SLIGHT = 6-15 cells HPF (0-5); Lymphocytes 8 % (21-51); Metamyelocyte 2 % (0-0); Monocytes 7 % (0-10); Myelocyte 1 % (0-0); Neutrophil 69 % (42-75); Platelet Adequacy Comment Platelets Normal; Polychromasia SLIGHT = 2-3 cells HPF (0-2); Target Cells SLIGHT = 2-5 cells HPF (0-1); Tear Drops SLIGHT = 2-5 cells HPF (0-1)
[2024-03-30] MEDS: Sodium Chloride 0.9% 1,000 ML IV SCH (09:40)
[2024-03-30] MEDS: Albumin 25% 25 GM (100 mL) BOT IVPB SCH (12:50)
[2024-03-30] MEDS: Hydrocortisone Sod Succ/PF 100 mg/2 ml Vial IVP SCH (21:33)
[2024-03-31 05:51] LABS: Anion Gap 14 mmol/L (10-20); BUN (Urea Nitrogen) 106 mg/dL (8.4-25.7); Calc. Creatinine Clearance 35 mL/min (70-130); Calcium 8.9 mg/dL (7.8-10.44); Carbon Dioxide 14 mmol/L (23-31); Chloride 116 mmol/L (98-107); Estimated GFR 25; Glucose 132 mg/dL (83-110); Potassium 5.2 mmol/L (3.5-5.1); Sodium 139 mmol/L (136-145)
[2024-03-31 06:22] LABS: Hematocrit 32.5 % (42.0-52.0); Hemoglobin 10.4 g/dL (14.0-18.0); Mean Corpuscular Hemoglobin 29.9 pg (27.0-31.0); Mean Corpuscular Volume 93.4 fL (78.0-98.0); Mean Platelet Volume 11.1 fL (7.4-10.4); Platelet Count 368 10x3/uL (130-400); RBC Distribution Width 15.9 % (11.5-14.5); Red Blood Cell (RBC) Count 3.48 mill/uL (4.70-6.10)
[2024-03-31 07:11] LABS: RBC/HPF 0-3 HPF (0-3); Squamous Epithelial None Seen HPF (0-3); WBC/HPF 0-3 HPF (0-3)
[2024-03-31 07:13] LABS: Bacteria/HPF Rare-Few HPF (None Seen)
[2024-03-31 07:14] LABS: Bilirubin Negative (Negative); Blood, Urine 1+ (Negative); Clarity Clear (Clear); Glucose, Urine (Dipstick) Normal (Negative); Ketone, Urine Negative (Negative); Leukocyte Negative Leu/uL (Negative); Nitrite Negative (Negative); Protein, Urine (Dipstick) 70 mg/dL (Neg-Trace); Specific Gravity, Urine 1.024 (1.002-1.036); Urobilinogen Normal mg/dL (Less than 2); pH, Urine 5.5 (5.0-9.0)
[2024-03-31 07:39] LABS: Band 11 % (5-11); Large Platelets 11.8 % (0-5); Lymphocytes 11 % (21-51); Metamyelocyte 2 % (0-0); Monocytes 4 % (0-10); Myelocyte 3 % (0-0); Neutrophil 69 % (42-75); Platelet Adequacy Comment Platelets Normal; Polychromasia SLIGHT = 2-3 cells HPF (0-2); Reactive Lymphocytes 1 % (0-10)
[2024-04-01 05:18] LABS: Hematocrit 34.9 % (42.0-52.0); Hemoglobin 11.4 g/dL (14.0-18.0); Mean Corpuscular HGB CONC 32.7 g/dL (32.0-36.0); Mean Corpuscular Hemoglobin 30.5 pg (27.0-31.0); Mean Corpuscular Volume 93.3 fL (78.0-98.0); Mean Platelet Volume 10.9 fL (7.4-10.4); Platelet Count 396 10x3/uL (130-400); RBC Distribution Width 15.3 % (11.5-14.5); Red Blood Cell (RBC) Count 3.74 mill/uL (4.70-6.10)
[2024-04-01 05:40] LABS: Band 13 % (5-11); Lymphocytes 3 % (21-51); Monocytes 11 % (0-10); Neutrophil 73 % (42-75); Platelet Adequacy Comment Platelets Normal; RBC Morphology Within Normal Limits; Smudge Cells 5.9 %
[2024-04-01 05:58] LABS: Anion Gap 12 mmol/L (10-20); BUN (Urea Nitrogen) 104 mg/dL (8.4-25.7); Calc. Creatinine Clearance 36 mL/min (70-130); Calcium 8.6 mg/dL (7.8-10.44); Carbon Dioxide 13 mmol/L (23-31); Chloride 118 mmol/L (98-107); Estimated GFR 26; Glucose 115 mg/dL (83-110); Potassium 5.4 mmol/L (3.5-5.1); Sodium 138 mmol/L (136-145)
[2024-04-01] MEDS: Hydrocortisone Sod Succ/PF 100 mg/2 ml Vial IVP SCH (08:39)
[2024-04-01] MEDS: Albuterol 200 PUFF (6.7GM INHALER) INH PRN (11:27)
[2024-04-01] MEDS: Sodium Bicarbonate Tab 325 MG TAB PO SCH (15:27)
[2024-04-02] MEDS: Ipratropium/Albuterol 3 ML NEB NEB PRN (04:15)
[2024-04-02 04:32] LABS: Base Excess (BEa) -9.4 mEq/L (-2.0 to +3.0); Calcium, Ionized (arterial) 1.32 mmol/L (1.12-1.30); Carboxyhemoglobin (COHb) 1.1 gm% (0.0-3.0); Hematocrit-ABG 38 % (42.0-52.0); Hemoglobin (Hb) 12.8 g/dL (14.0-18.0); O2 Tension (PaO2), arterial 141.4 mmHg (> 70.0); Potassium - ABG Lab 5.11 mmol/L (3.70-5.30)
[2024-04-02 04:34] LABS: ALV-art Gradient 43.875 mmHg (0-20); Puncture Site Right Radial artery
[2024-04-02 04:45] LABS: Lactic Acid 1.62 mmol/L (0.5-2.2)
[2024-04-02 04:50] LABS: ALT (SGPT) 9 U/L (8-55); AST (SGOT) 18 U/L (5-34); Albumin 2.5 g/dL (3.4-4.8); Alkaline Phosphatase 63 U/L (40-110); Anion Gap 13 mmol/L (10-20); BUN (Urea Nitrogen) 112 mg/dL (8.4-25.7); Bilirubin, Total 0.5 mg/dL (0.2-1.2); Calc. Creatinine Clearance 39 mL/min (70-130); Calcium 8.8 mg/dL (7.8-10.44); Carbon Dioxide 13 mmol/L (23-31); Chloride 115 mmol/L (98-107); Estimated GFR 21; Globulin 3.5 g/dL (2.4-3.5); Glucose 119 mg/dL (83-110); Magnesium 3.1 mg/dL (1.6-2.6); Potassium 5.3 mmol/L (3.5-5.1); Sodium 136 mmol/L (136-145)
[2024-04-02 05:03] LABS: Hematocrit 38.5 % (42.0-52.0); Hemoglobin 12.4 g/dL (14.0-18.0); Mean Corpuscular HGB CONC 32.2 g/dL (32.0-36.0); Mean Corpuscular Hemoglobin 30.5 pg (27.0-31.0); Mean Corpuscular Volume 94.6 fL (78.0-98.0); Platelet Count 405 10x3/uL (130-400); RBC Distribution Width 15.5 % (11.5-14.5); Red Blood Cell (RBC) Count 4.07 mill/uL (4.70-6.10)
[2024-04-02] MEDS: Sodium Bicarb 50 MEQ/50 ML Abboject 8.4% SYRINGE IVP SCH (05:10)
[2024-04-02] MEDS: Sodium Bicarb 50 MEQ/50 ML Abboject 8.4% SYRINGE ONE ×2 (05:21→05:22)
[2024-04-02] MEDS: Albumin 25% 25 GM (100 mL) BOT IVPB SCH ×2 (05:34→12:23)
[2024-04-02] MEDS: Sodium Bicarbonate 150 MEQ in Dextrose 5% in Water 1,000 ML IV SCH (05:34)
[2024-04-02 05:45] LABS: Anisocytosis SLIGHT = 6-15 cells HPF (0-5); Band 22 % (5-11); Lymphocytes 3 % (21-51); Macrocytosis SLIGHT = 6-15 cells HPF (0-5); Neutrophil 75 % (42-75); Platelet Adequacy Comment Platelets Normal; Polychromasia SLIGHT = 2-3 cells HPF (0-2); Smudge Cells 11.1 %
[2024-04-02] MEDS: NOREPINEPHRINE 8 MG/250 ML-D5W 250 ML IVPB SCH (06:21)
[2024-04-02] MEDS ORDERED: DOBUTamine 500 mg/250 ml 250 ML IVPB SCH (06:30)
[2024-04-02 08:13] LABS: Anion Gap 16 mmol/L (10-20); BUN (Urea Nitrogen) 114 mg/dL (8.4-25.7); Calc. Creatinine Clearance 31 mL/min (70-130); Calcium 8.6 mg/dL (7.8-10.44); Carbon Dioxide 19 mmol/L (23-31); Chloride 111 mmol/L (98-107); Estimated GFR 20; Glucose 136 mg/dL (83-110); Potassium 4.8 mmol/L (3.5-5.1); Sodium 141 mmol/L (136-145)
[2024-04-02] MEDS: SODIUM CHLORIDE 0.9% IVPB SCH (08:24)
[2024-04-02] MEDS: CEFTRIAXONE ROCEPHIN IVPB SCH (08:24)
[2024-04-02] MEDS: Midodrine HCl 5 MG TAB PO SCH (21:28)
[2024-04-02] MEDS: Hydrocortisone Sod Succ/PF 100 mg/2 ml Vial IVP SCH (21:28)
[2024-04-03 05:45] LABS: Mean Corpuscular HGB CONC 33.3 g/dL (32.0-36.0); Mean Corpuscular Hemoglobin 30.7 pg (27.0-31.0); Mean Corpuscular Volume 92.2 fL (78.0-98.0); Mean Platelet Volume 11.9 fL (7.4-10.4); Platelet Count 260 10x3/uL (130-400); RBC Distribution Width 15.3 % (11.5-14.5); Red Blood Cell (RBC) Count 2.93 mill/uL (4.70-6.10)
[2024-04-03 05:58] LABS: Anion Gap 13 mmol/L (10-20); BUN (Urea Nitrogen) 118 mg/dL (8.4-25.7); Calc. Creatinine Clearance 26 mL/min (70-130); Calcium 8.6 mg/dL (7.8-10.44); Carbon Dioxide 20 mmol/L (23-31); Chloride 112 mmol/L (98-107); Estimated GFR 16; Glucose 127 mg/dL (83-110); Potassium 5.2 mmol/L (3.5-5.1); Sodium 140 mmol/L (136-145)
[2024-04-03 06:38] LABS: Band 10 % (5-11); Hypochromia SLIGHT = 6-15 cells HPF (0-5); Large Platelets 3.9 % (0-5); Lymphocytes 2 % (21-51); Monocytes 11 % (0-10); Myelocyte 1 % (0-0); Neutrophil 77 % (42-75); Platelet Adequacy Comment Platelets Normal; Smudge Cells 2.9 %
[2024-04-03 10:29] LABS: Bacteria/HPF 1+ HPF (None Seen); Bilirubin Negative (Negative); Blood, Urine Trace (Negative); Glucose, Urine (Dipstick) Normal (Negative); Ketone, Urine Negative (Negative); Leukocyte Negative Leu/uL (Negative); Nitrite Negative (Negative); Protein, Urine (Dipstick) 50 mg/dL (Neg-Trace); Specific Gravity, Urine 1.023 (1.002-1.036); Squamous Epithelial 0-3 HPF (0-3); Urobilinogen Normal mg/dL (Less than 2); WBC/HPF 0-3 HPF (0-3)
[2024-04-03 10:30] LABS: Clarity Cloudy (Clear)
[2024-04-03] MEDS: Furosemide 40 MG (4 mL) VIAL SLOW IVP SCH (10:51)
[2024-04-03] MEDS: Cholestyramine/Aspartame 4 gm Packet PO SCH (21:28)
[2024-04-04 05:21] LABS: Anion Gap 13 mmol/L (10-20); BUN (Urea Nitrogen) 116 mg/dL (8.4-25.7); Calc. Creatinine Clearance 26 mL/min (70-130); Calcium 8.6 mg/dL (7.8-10.44); Carbon Dioxide 19 mmol/L (23-31); Chloride 110 mmol/L (98-107); Estimated GFR 16; Glucose 138 mg/dL (83-110); Potassium 5.1 mmol/L (3.5-5.1); Sodium 137 mmol/L (136-145)
[2024-04-04 06:14] LABS: Hematocrit 30.5 % (42.0-52.0); Mean Corpuscular HGB CONC 32.8 g/dL (32.0-36.0); Mean Corpuscular Hemoglobin 30.7 pg (27.0-31.0); Mean Corpuscular Volume 93.6 fL (78.0-98.0); Mean Platelet Volume 11.6 fL (7.4-10.4); Platelet Count 338 10x3/uL (130-400); RBC Distribution Width 15.4 % (11.5-14.5); Red Blood Cell (RBC) Count 3.26 mill/uL (4.70-6.10)
[2024-04-04 06:52] LABS: Anisocytosis SLIGHT = 6-15 cells HPF (0-5); Band 8 % (5-11); Hypochromia SLIGHT = 6-15 cells HPF (0-5); Large Platelets 2.9 % (0-5); Lymphocytes 5 % (21-51); Macrocytosis SLIGHT = 6-15 cells HPF (0-5); Monocytes 10 % (0-10); Neutrophil 78 % (42-75); Platelet Adequacy Comment Platelets Normal; Polychromasia SLIGHT = 2-3 cells HPF (0-2)
[2024-04-04] MEDS: predniSONE 20 MG TAB PO SCH (11:38)
[2024-04-04] MEDS: Ipratropium Bromide 2.5 ml Neb NEB PRN (15:40)
[2024-04-05] MEDS: Pantoprazole 40 MG VIAL IVP SCH (05:04)
[2024-04-05 05:54] LABS: Anion Gap 14 mmol/L (10-20); BUN (Urea Nitrogen) 124 mg/dL (8.4-25.7); Calc. Creatinine Clearance 26 mL/min (70-130); Calcium 8.7 mg/dL (7.8-10.44); Carbon Dioxide 19 mmol/L (23-31); Chloride 107 mmol/L (98-107); Estimated GFR 16; Glucose 126 mg/dL (83-110); Potassium 5.2 mmol/L (3.5-5.1); Sodium 135 mmol/L (136-145)
[2024-04-05 05:56] LABS: Hematocrit 31.1 % (42.0-52.0); Hemoglobin 10.3 g/dL (14.0-18.0); Mean Corpuscular HGB CONC 33.1 g/dL (32.0-36.0); Mean Corpuscular Hemoglobin 30.5 pg (27.0-31.0); Mean Platelet Volume 11.6 fL (7.4-10.4); Platelet Count 401 10x3/uL (130-400); RBC Distribution Width 15.9 % (11.5-14.5); Red Blood Cell (RBC) Count 3.38 mill/uL (4.70-6.10)
[2024-04-05 06:24] LABS: Anisocytosis MARKED = >30 cells HPF (0-5); Band 16 % (5-11); Large Platelets 15.2 % (0-5); Lymphocytes 10 % (21-51); Macrocytosis MODERATE=16-30 cells HPF (0-5); Monocytes 6 % (0-10); Neutrophil 69 % (42-75); Ovalocytes SLIGHT = 2-5 cells HPF (0-1); Platelet Adequacy Comment Platelets Increased; Polychromasia SLIGHT = 2-3 cells HPF (0-2)
[2024-04-05] MEDS: Sodium Chloride 0.9% 1,000 ML IV SCH ×2 (10:42→12:17)
[2024-04-06 06:46] LABS: Anion Gap 14 mmol/L (10-20); BUN (Urea Nitrogen) 120 mg/dL (8.4-25.7); Calc. Creatinine Clearance 25 mL/min (70-130); Calcium 8.2 mg/dL (7.8-10.44); Carbon Dioxide 18 mmol/L (23-31); Chloride 109 mmol/L (98-107); Estimated GFR 15; Glucose 108 mg/dL (83-110); Potassium 5.5 mmol/L (3.5-5.1); Sodium 135 mmol/L (136-145)
[2024-04-06 06:52] LABS: Mean Corpuscular HGB CONC 32.1 g/dL (32.0-36.0); Mean Corpuscular Hemoglobin 30.9 pg (27.0-31.0); Mean Corpuscular Volume 96.2 fL (78.0-98.0); Mean Platelet Volume 11.2 fL (7.4-10.4); Platelet Count 356 10x3/uL (130-400); RBC Distribution Width 15.8 % (11.5-14.5); Red Blood Cell (RBC) Count 2.91 mill/uL (4.70-6.10)
[2024-04-06 07:55] LABS: Band 29 % (5-11); Lymphocytes 7 % (21-51); Monocytes 11 % (0-10); Neutrophil 53 % (42-75); Platelet Adequacy Comment Platelets Normal; Polychromasia SLIGHT = 2-3 cells HPF (0-2)
[2024-04-06] MEDS: Sodium Chloride 0.9% 1,000 ML IV SCH (17:13)
[2024-04-07 05:51] LABS: Anion Gap 14 mmol/L (10-20); BUN (Urea Nitrogen) 121 mg/dL (8.4-25.7); Calc. Creatinine Clearance 27 mL/min (70-130); Calcium 7.9 mg/dL (7.8-10.44); Carbon Dioxide 17 mmol/L (23-31); Chloride 110 mmol/L (98-107); Estimated GFR 16; Glucose 126 mg/dL (83-110); Potassium 5.6 mmol/L (3.5-5.1); Sodium 135 mmol/L (136-145)
[2024-04-07 05:56] LABS: #Basophils Less than 0.03 10x3/uL (0.0-0.2); #Eosinophils Less than 0.03 10x3/uL (0.0-0.7); %Lymphocytes 9.1 % (21.0-51.0); %Monocytes 14.7 % (0.0-10.0); %Neutrophils 74.7 % (42.0-75.0); Hematocrit 27.4 % (42.0-52.0); Hemoglobin 8.8 g/dL (14.0-18.0); Mean Corpuscular HGB CONC 32.1 g/dL (32.0-36.0); Mean Corpuscular Hemoglobin 29.8 pg (27.0-31.0); Mean Corpuscular Volume 92.9 fL (78.0-98.0); Mean Platelet Volume 12.5 fL (7.4-10.4); Platelet Count 273 10x3/uL (130-400); Red Blood Cell (RBC) Count 2.95 mill/uL (4.70-6.10)
[2024-04-07] MEDS: Acetaminophen 325 MG TAB PO PRN (17:04)
[2024-04-08 05:43] LABS: Hemoglobin 8.1 g/dL (14.0-18.0); Mean Corpuscular HGB CONC 32.4 g/dL (32.0-36.0); Mean Corpuscular Hemoglobin 30.9 pg (27.0-31.0); Mean Corpuscular Volume 95.4 fL (78.0-98.0); Mean Platelet Volume 11.4 fL (7.4-10.4); Platelet Count 342 10x3/uL (130-400); Red Blood Cell (RBC) Count 2.62 mill/uL (4.70-6.10)
[2024-04-08 05:56] LABS: Anion Gap 15 mmol/L (10-20); BUN (Urea Nitrogen) 118 mg/dL (8.4-25.7); Calc. Creatinine Clearance 27 mL/min (70-130); Calcium 7.7 mg/dL (7.8-10.44); Carbon Dioxide 15 mmol/L (23-31); Chloride 112 mmol/L (98-107); Estimated GFR 15; Glucose 104 mg/dL (83-110); Potassium 5.8 mmol/L (3.5-5.1); Sodium 136 mmol/L (136-145)
[2024-04-08 06:08] LABS: Band 20 % (5-11); Eosinophils 1 % (0-10); Hypochromia SLIGHT = 6-15 cells HPF (0-5); Large Platelets 4.9 % (0-5); Lymphocytes 6 % (21-51); Monocytes 4 % (0-10); Neutrophil 69 % (42-75); Platelet Adequacy Comment Platelets Normal; Polychromasia SLIGHT = 2-3 cells HPF (0-2)
[2024-04-08 08:44] LABS: Iron 24 ug/dL (65-175); Iron Binding Capacity, Total 103 mcg/dL (261-462)
[2024-04-08] MEDS: Sodium Bicarb 50 MEQ/50 ML Abboject 8.4% SYRINGE IVP SCH (08:54)
[2024-04-08] MEDS: LOKELMA 10 GM PACKET PO SCH (08:54)
[2024-04-08] MEDS: Albumin 25% 25 GM (100 mL) BOT IVPB SCH ×2 (09:52→11:23)
[2024-04-08] MEDS: Sodium Bicarbonate 150 MEQ in Sterile Water 1,000 ML IV SCH (09:59)
[2024-04-08] MEDS: Sodium Bicarbonate Tab 325 MG TAB PO SCH (11:21)
[2024-04-08 14:32] LABS: Anion Gap 14 mmol/L (10-20); BUN (Urea Nitrogen) 114 mg/dL (8.4-25.7); Calc. Creatinine Clearance 30 mL/min (70-130); Calcium 8.3 mg/dL (7.8-10.44); Carbon Dioxide 18 mmol/L (23-31); Chloride 110 mmol/L (98-107); Estimated GFR 17; Glucose 120 mg/dL (83-110); Potassium 5.3 mmol/L (3.5-5.1); Sodium 137 mmol/L (136-145)
[2024-04-09 05:30] LABS: Anion Gap 14 mmol/L (10-20); BUN (Urea Nitrogen) 107 mg/dL (8.4-25.7); Calc. Creatinine Clearance 29 mL/min (70-130); Calcium 8.3 mg/dL (7.8-10.44); Carbon Dioxide 19 mmol/L (23-31); Chloride 111 mmol/L (98-107); Estimated GFR 18; Glucose 96 mg/dL (83-110); Sodium 139 mmol/L (136-145)
[2024-04-09 05:45] LABS: Hematocrit 24.9 % (42.0-52.0); Hemoglobin 8.1 g/dL (14.0-18.0); Mean Corpuscular HGB CONC 32.5 g/dL (32.0-36.0); Mean Corpuscular Hemoglobin 30.3 pg (27.0-31.0); Mean Corpuscular Volume 93.3 fL (78.0-98.0); Mean Platelet Volume 11.6 fL (7.4-10.4); Platelet Count 314 10x3/uL (130-400); RBC Distribution Width 16.1 % (11.5-14.5); Red Blood Cell (RBC) Count 2.67 mill/uL (4.70-6.10)
[2024-04-09 06:18] LABS: Anisocytosis SLIGHT = 6-15 cells HPF (0-5); Band 39 % (5-11); Lymphocytes 4 % (21-51); Monocytes 11 % (0-10); Neutrophil 45 % (42-75); Platelet Adequacy Comment Platelets Normal; Reactive Lymphocytes 1 % (0-10)
[2024-04-09] MEDS: Sodium Bicarbonate 150 MEQ in Sterile Water 1,000 ML IV SCH (09:14)
[2024-04-09 09:29] LABS: Actual Bicarbonate (HCO3a) 20.9 mEq/L (22-28); Base Excess (BEa) -3.1 mEq/L (-2.0 to +3.0); CO2 Tension 32.6 mmHg (35.0-45.0); Calcium, Ionized (arterial) 1.09 mmol/L (1.12-1.30); Hematocrit-ABG 24 % (42.0-52.0); Hemoglobin (Hb) 8.1 g/dL (14.0-18.0); O2 Tension (PaO2), arterial 73.7 mmHg (> 70.0); Potassium - ABG Lab 4.82 mmol/L (3.70-5.30); pH, Arterial 7.424 (7.35-7.45)
[2024-04-09 09:30] LABS: Puncture Site Right Radial artery
[2024-04-09] MEDS ORDERED: Torsemide 20 MG TAB PO SCH (10:36)
[2024-04-09] MEDS: Albumin 25% 25 GM (100 mL) BOT IVPB SCH (11:33)
[2024-04-09] MEDS: Torsemide 20 MG TAB PO SCH (11:33)
[2024-04-09] MEDS: Saccharomyces boulardii 250 MG CAP PO SCH ×2 (12:37→19:51)
[2024-04-09 17:49] LABS: Hematocrit 24.3 % (42.0-52.0); Hemoglobin 7.8 g/dL (14.0-18.0); Mean Corpuscular HGB CONC 32.1 g/dL (32.0-36.0); Mean Corpuscular Hemoglobin 30.6 pg (27.0-31.0); Mean Corpuscular Volume 95.3 fL (78.0-98.0); Mean Platelet Volume 10.9 fL (7.4-10.4); Platelet Count 299 10x3/uL (130-400); RBC Distribution Width 16.2 % (11.5-14.5); Red Blood Cell (RBC) Count 2.55 mill/uL (4.70-6.10)
[2024-04-09 18:03] LABS: Vancomycin, Random 42.8 ug/mL (See Comment)
[2024-04-09 18:06] LABS: ALT (SGPT) Less than 5 U/L (8-55); AST (SGOT) 11 U/L (5-34); Albumin 3.2 g/dL (3.4-4.8); Alkaline Phosphatase 36 U/L (40-110); Anion Gap 15 mmol/L (10-20); BUN (Urea Nitrogen) 103 mg/dL (8.4-25.7); Bilirubin, Total 0.8 mg/dL (0.2-1.2); Calc. Creatinine Clearance 27 mL/min (70-130); Calcium 8.5 mg/dL (7.8-10.44); Carbon Dioxide 18 mmol/L (23-31); Chloride 112 mmol/L (98-107); Estimated GFR 17; Globulin 2.6 g/dL (2.4-3.5); Glucose 84 mg/dL (83-110); Potassium 4.8 mmol/L (3.5-5.1); Protein, Total 5.8 g/dL (5.8-8.1); Sodium 140 mmol/L (136-145)
[2024-04-09 18:21] LABS: Anisocytosis SLIGHT = 6-15 cells HPF (0-5); Band 22 % (5-11); Dohle Bodies MODERATE; Eosinophils 1 % (0-10); Large Platelets 3.8 % (0-5); Lymphocytes 2 % (21-51); Metamyelocyte 1 % (0-0); Monocytes 8 % (0-10); Neutrophil 67 % (42-75); Platelet Adequacy Comment Platelets Normal; Polychromasia SLIGHT = 2-3 cells HPF (0-2); Target Cells SLIGHT = 2-5 cells HPF (0-1); Toxic Granulation SLIGHT; Vacuoles SLIGHT
[2024-04-09] MEDS: Cefepime 1 GM in Sodium Chloride 0.9% 100 ML IVPB SCH (20:50)
[2024-04-10 08:36] LABS: Band 8 % (5-11); Burr Cells SLIGHT = 2-5 cells HPF (0-1); Dohle Bodies MODERATE; Hypochromia SLIGHT = 6-15 cells HPF (0-5); Lymphocytes 9 % (21-51); Monocytes 6 % (0-10); Neutrophil 76 % (42-75); Platelet Adequacy Comment Platelets Normal; Toxic Granulation SLIGHT; Vacuoles SLIGHT
[2024-04-10 08:38] LABS: Hematocrit 22.4 % (42.0-52.0); Hemoglobin 7.4 g/dL (14.0-18.0); Mean Corpuscular Hemoglobin 31.4 pg (27.0-31.0); Mean Corpuscular Volume 94.9 fL (78.0-98.0); Mean Platelet Volume 11.5 fL (7.4-10.4); Platelet Count 249 10x3/uL (130-400); RBC Distribution Width 16.4 % (11.5-14.5); Red Blood Cell (RBC) Count 2.36 mill/uL (4.70-6.10)
[2024-04-10] MEDS: Torsemide 20 MG TAB PO SCH (08:56)
[2024-04-10 10:30] LABS: Actual Bicarbonate (HCO3a) 13.6 mEq/L (22-28); CO2 Tension 22.9 mmHg (35.0-45.0)
[2024-04-10 17:07] LABS: Anion Gap 18 mmol/L (10-20); BUN (Urea Nitrogen) 94 mg/dL (8.4-25.7); Calc. Creatinine Clearance 31 mL/min (70-130); Calcium 8.5 mg/dL (7.8-10.44); Carbon Dioxide 19 mmol/L (23-31); Chloride 112 mmol/L (98-107); Estimated GFR 19; Glucose 84 mg/dL (83-110); Potassium 4.5 mmol/L (3.5-5.1); Sodium 144 mmol/L (136-145)
[2024-04-11 06:01] LABS: Hematocrit 22.2 % (42.0-52.0); Hemoglobin 7.3 g/dL (14.0-18.0); Mean Corpuscular HGB CONC 32.9 g/dL (32.0-36.0); Mean Corpuscular Hemoglobin 30.5 pg (27.0-31.0); Mean Corpuscular Volume 92.9 fL (78.0-98.0); Mean Platelet Volume 11.4 fL (7.4-10.4); Platelet Count 257 10x3/uL (130-400); RBC Distribution Width 16.9 % (11.5-14.5); Red Blood Cell (RBC) Count 2.39 mill/uL (4.70-6.10)
[2024-04-11 06:31] LABS: Band 29 % (5-11); Hypochromia SLIGHT = 6-15 cells HPF (0-5); Lymphocytes 3 % (21-51); Macrocytosis SLIGHT = 6-15 cells HPF (0-5); Monocytes 10 % (0-10); Neutrophil 57 % (42-75); Platelet Adequacy Comment Platelets Normal; Polychromasia SLIGHT = 2-3 cells HPF (0-2); Target Cells MODERATE= 6-15 cells HPF (0-1)
[2024-04-11 06:32] LABS: Anion Gap 17 mmol/L (10-20); BUN (Urea Nitrogen) 91 mg/dL (8.4-25.7); Calc. Creatinine Clearance 33 mL/min (70-130); Calcium 8.3 mg/dL (7.8-10.44); Carbon Dioxide 21 mmol/L (23-31); Chloride 113 mmol/L (98-107); Estimated GFR 21; Glucose 91 mg/dL (83-110); Potassium 3.6 mmol/L (3.5-5.1); Sodium 147 mmol/L (136-145)
[2024-04-12] MEDS ORDERED: Metoclopramide HCl 10 MG (2 mL) VIAL ONE (13:04)
[2024-04-12] MEDS ORDERED: Ondansetron PF 4 MG/2 ML Vial ONE (13:23)
[2024-04-12] MEDS ORDERED: Lidocaine 2% 6 ML (Jelly) SYR ONE (13:23)
[2024-04-12] MEDS ORDERED: [UNRECOGNIZED DRUG - OTHER] FS ONE ×2 (13:48)
[2024-04-12] MEDS ORDERED: Heparin 5,000 UNITS/ML VIAL ONE (20:50)
[2024-04-12] MEDS ORDERED: Cholestyramine/Aspartame 4 gm Packet ONE (20:50)
[2024-04-12] MEDS ORDERED: Milk Of Magnesia 30 ML UDCUP ONE (20:50)
[2024-04-12] MEDS ORDERED: metroNIDAZOLE 500 MG (100 mL) BAG ONE (20:50)
[2024-04-12] MEDS ORDERED: Calcium Carbonate 600 MG + Vit D TAB ONE (20:50)
[2024-04-12] MEDS ORDERED: Saccharomyces boulardii 250 MG CAP ONE (20:50)
[2024-04-12] MEDS ORDERED: Midodrine HCl 5 MG TAB ONE (20:50)
[2024-04-12] MEDS ORDERED: Sodium Bicarbonate Tab 325 MG TAB ONE (20:50)
[2024-04-12] MEDS ORDERED: Cefepime 1 GM VIAL ONE (20:50)
[2024-04-13] MEDS ORDERED: Vancomycin HCl 125 MG Capsule ONE ×2 (05:19→13:45)
[2024-04-13] MEDS ORDERED: Aspirin 81 mg Enteric Coated Tablet ONE (09:45)
[2024-04-13] MEDS ORDERED: Calcium Carbonate 600 MG + Vit D TAB ONE (09:45)
[2024-04-13] MEDS ORDERED: Midodrine HCl 5 MG TAB ONE ×2 (09:45→15:30)
[2024-04-13] MEDS ORDERED: Saccharomyces boulardii 250 MG CAP ONE (09:45)
[2024-04-13] MEDS ORDERED: Famotidine/PF 20 mg/2ml Vial ONE (09:45)
[2024-04-13] MEDS ORDERED: Cyanocobalamin (Vitamin B-12) 1,000 MCG TAB ONE (09:45)
[2024-04-13] MEDS ORDERED: Sodium Bicarbonate Tab 325 MG TAB ONE (09:45)
[2024-04-13] MEDS ORDERED: Heparin 5,000 UNITS/ML VIAL ONE ×2 (09:45→15:30)
[2024-04-13] MEDS ORDERED: Sertraline 25 MG TAB ONE (09:45)
[2024-04-13] MEDS ORDERED: Cefepime 1 GM VIAL ONE (09:45)
[2024-04-13] MEDS ORDERED: Torsemide 20 MG TAB ONE (09:45)
[2024-04-13] MEDS ORDERED: Loratadine 10 MG TAB ONE (09:45)
[2024-04-13] MEDS ORDERED: Aripiprazole 10 MG TAB ONE (09:45)
[2024-04-13] MEDS ORDERED: metroNIDAZOLE 500 MG (100 mL) BAG ONE (13:45)
[2024-04-13 22:48] LABS: ALT (SGPT) Less than 5 U/L (8-55); AST (SGOT) 13 U/L (5-34); Alkaline Phosphatase 33 U/L (40-110); Anion Gap 11 mmol/L (10-20); BUN (Urea Nitrogen) 76 mg/dL (8.4-25.7); Bilirubin, Total 0.6 mg/dL (0.2-1.2); Calc. Creatinine Clearance 44 mL/min (70-130); Calcium 8.2 mg/dL (7.8-10.44); Carbon Dioxide 23 mmol/L (23-31); Chloride 113 mmol/L (98-107); Estimated GFR 30; Glucose 120 mg/dL (83-110); Potassium 3.4 mmol/L (3.5-5.1); Sodium 144 mmol/L (136-145)
[2024-04-13 22:54] LABS: #Basophils 0.03 10x3/uL (0.0-0.2); %Basophils 0.5 % (0.0-1.0); %Lymphocytes 9.9 % (21.0-51.0); %Monocytes 9.9 % (0.0-10.0); %Neutrophils 76.4 % (42.0-75.0); Hematocrit 20.4 % (42.0-52.0); Hemoglobin 6.7 g/dL (14.0-18.0); Mean Corpuscular HGB CONC 32.8 g/dL (32.0-36.0); Mean Corpuscular Hemoglobin 30.6 pg (27.0-31.0); Mean Corpuscular Volume 93.2 fL (78.0-98.0); Mean Platelet Volume 10.9 fL (7.4-10.4); Platelet Count 206 10x3/uL (130-400); RBC Distribution Width 17.6 % (11.5-14.5); Red Blood Cell (RBC) Count 2.19 mill/uL (4.70-6.10)
[2024-04-14 06:58] LABS: Hematocrit 20.2 % (42.0-52.0); Hemoglobin 6.8 g/dL (14.0-18.0); Mean Corpuscular HGB CONC 33.7 g/dL (32.0-36.0); Mean Corpuscular Hemoglobin 30.6 pg (27.0-31.0); Mean Platelet Volume 11.7 fL (7.4-10.4); Platelet Count 175 10x3/uL (130-400); RBC Distribution Width 17.4 % (11.5-14.5); Red Blood Cell (RBC) Count 2.22 mill/uL (4.70-6.10)
[2024-04-14 07:14] LABS: Anisocytosis MARKED = >30 cells HPF (0-5); Band 10 % (5-11); Large Platelets 4.7 % (0-5); Lymphocytes 9 % (21-51); Macrocytosis MODERATE=16-30 cells HPF (0-5); Metamyelocyte 1 % (0-0); Monocytes 9 % (0-10); Neutrophil 67 % (42-75); Plasma Cells 1 % (0-0); Platelet Adequacy Comment Platelets Normal; Polychromasia SLIGHT = 2-3 cells HPF (0-2); Target Cells SLIGHT = 2-5 cells HPF (0-1)
[2024-04-14 07:31] LABS: Anion Gap 13 mmol/L (10-20); BUN (Urea Nitrogen) 76 mg/dL (8.4-25.7); Calc. Creatinine Clearance 42 mL/min (70-130); Calcium 8.1 mg/dL (7.8-10.44); Carbon Dioxide 21 mmol/L (23-31); Chloride 111 mmol/L (98-107); Estimated GFR 27; Glucose 110 mg/dL (83-110); Potassium 4.3 mmol/L (3.5-5.1); Sodium 141 mmol/L (136-145)
[2024-04-15 05:49] LABS: Anion Gap 13 mmol/L (10-20); BUN (Urea Nitrogen) 73 mg/dL (8.4-25.7); Calc. Creatinine Clearance 48 mL/min (70-130); Calcium 8.2 mg/dL (7.8-10.44); Carbon Dioxide 24 mmol/L (23-31); Chloride 109 mmol/L (98-107); Estimated GFR 32; Glucose 108 mg/dL (83-110); Potassium 3.2 mmol/L (3.5-5.1); Sodium 143 mmol/L (136-145)
[2024-04-15 06:13] LABS: Hemoglobin 7.6 g/dL (14.0-18.0); Mean Corpuscular Hemoglobin 30.6 pg (27.0-31.0); Mean Corpuscular Volume 92.7 fL (78.0-98.0); Mean Platelet Volume 10.9 fL (7.4-10.4); Platelet Count 194 10x3/uL (130-400); RBC Distribution Width 16.4 % (11.5-14.5); Red Blood Cell (RBC) Count 2.48 mill/uL (4.70-6.10)
[2024-04-15 07:10] LABS: Anisocytosis SLIGHT = 6-15 cells HPF (0-5); Band 21 % (5-11); Eosinophils 3 % (0-10); Lymphocytes 12 % (21-51); Monocytes 7 % (0-10); Neutrophil 57 % (42-75); Platelet Adequacy Comment Platelets Normal
[2024-04-15] MEDS: Dextrose 5 % And 0.9 % NaCl 1,000 ML IV SCH (09:34)
[2024-04-15] MEDS: Potassium Bicarbonate/Cit Ac 25 MEQ TAB PO SCH (15:44)
[2024-04-16 10:45] LABS: Hematocrit 22.4 % (42.0-52.0); Hemoglobin 7.6 g/dL (14.0-18.0); Mean Corpuscular HGB CONC 33.9 g/dL (32.0-36.0); Mean Corpuscular Hemoglobin 30.3 pg (27.0-31.0); Mean Corpuscular Volume 89.2 fL (78.0-98.0); Mean Platelet Volume 10.8 fL (7.4-10.4); Platelet Count 195 10x3/uL (130-400); Red Blood Cell (RBC) Count 2.51 mill/uL (4.70-6.10)
[2024-04-16 10:59] LABS: Anion Gap 10 mmol/L (10-20); BUN (Urea Nitrogen) 68 mg/dL (8.4-25.7); Calc. Creatinine Clearance 56 mL/min (70-130); Calcium 7.8 mg/dL (7.8-10.44); Carbon Dioxide 27 mmol/L (23-31); Chloride 110 mmol/L (98-107); Estimated GFR 37; Glucose 110 mg/dL (83-110); Sodium 144 mmol/L (136-145)
[2024-04-16 11:08] LABS: Anisocytosis MARKED = >30 cells HPF (0-5); Band 9 % (5-11); Eosinophils 3 % (0-10); Large Platelets 4.8 % (0-5); Lymphocytes 11 % (21-51); Macrocytosis MODERATE=16-30 cells HPF (0-5); Monocytes 6 % (0-10); Neutrophil 72 % (42-75); Platelet Adequacy Comment Platelets Normal; Polychromasia SLIGHT = 2-3 cells HPF (0-2); Target Cells MODERATE= 6-15 cells HPF (0-1)
[2024-04-16] MEDS ORDERED: ePHEDrine Sulfate 50 MG/10 ML VIAL ONE (11:38)
[2024-04-16] MEDS ORDERED: Rocuronium Bromide 10 MG/ML (10ML VIAL) ONE (11:50)
[2024-04-16] MEDS ORDERED: SUGAMMADEX SODIUM 200 MG/2 ML VIAL ONE (11:58)
[2024-04-16] MEDS: Sodium Chloride 0.9% 500 ML IV SCH (19:30)
[2024-04-17 03:43] LABS: Hematocrit 20.3 % (42.0-52.0); Hemoglobin 6.7 g/dL (14.0-18.0); Mean Platelet Volume 10.8 fL (7.4-10.4); Platelet Count 199 10x3/uL (130-400); RBC Distribution Width 17.3 % (11.5-14.5); Red Blood Cell (RBC) Count 2.16 mill/uL (4.70-6.10)
[2024-04-17 03:55] LABS: Anion Gap 10 mmol/L (10-20); BUN (Urea Nitrogen) 63 mg/dL (8.4-25.7); Calc. Creatinine Clearance 60 mL/min (70-130); Calcium 7.4 mg/dL (7.8-10.44); Carbon Dioxide 26 mmol/L (23-31); Chloride 110 mmol/L (98-107); Estimated GFR 41; Glucose 130 mg/dL (83-110); Potassium 2.7 mmol/L (3.5-5.1); Sodium 143 mmol/L (136-145)
[2024-04-17] MEDS: Potassium Chloride 20 MEQ in Premix 1 BAG IVPB SCH (04:45)
[2024-04-17 06:18] LABS: Anisocytosis MODERATE=16-30 cells HPF (0-5); Band 19 % (5-11); Eosinophils 5 % (0-10); Large Platelets 3.9 % (0-5); Lymphocytes 3 % (21-51); Macrocytosis MODERATE=16-30 cells HPF (0-5); Monocytes 8 % (0-10); Neutrophil 63 % (42-75); Platelet Adequacy Comment Platelets Normal; Polychromasia SLIGHT = 2-3 cells HPF (0-2); Smudge Cells 19.4 %; Target Cells MODERATE= 6-15 cells HPF (0-1)
[2024-04-17] MEDS: Vancomycin HCl 125 MG Capsule PO SCH (18:15)
[2024-04-17 18:25] LABS: Hematocrit 25.3 % (42.0-52.0); Hemoglobin 8.4 g/dL (14.0-18.0)
[2024-04-18 04:25] LABS: #Basophils 0.03 10x3/uL (0.0-0.2); %Basophils 0.6 % (0.0-1.0); %Eosinophils 5.1 % (0.0-10.0); %Lymphocytes 18.6 % (21.0-51.0); %Monocytes 12.1 % (0.0-10.0); Hematocrit 23.2 % (42.0-52.0); Hemoglobin 7.8 g/dL (14.0-18.0); Mean Corpuscular HGB CONC 33.6 g/dL (32.0-36.0); Mean Corpuscular Hemoglobin 30.7 pg (27.0-31.0); Mean Corpuscular Volume 91.3 fL (78.0-98.0); Mean Platelet Volume 10.9 fL (7.4-10.4); Platelet Count 220 10x3/uL (130-400); RBC Distribution Width 17.6 % (11.5-14.5); Red Blood Cell (RBC) Count 2.54 mill/uL (4.70-6.10)
[2024-04-18 05:16] LABS: Anion Gap 8 mmol/L (10-20); BUN (Urea Nitrogen) 58 mg/dL (8.4-25.7); Calc. Creatinine Clearance 68 mL/min (70-130); Calcium 7.4 mg/dL (7.8-10.44); Carbon Dioxide 27 mmol/L (23-31); Chloride 112 mmol/L (98-107); Estimated GFR 48; Glucose 130 mg/dL (83-110); Sodium 144 mmol/L (136-145)
[2024-04-18] MEDS ORDERED: Potassium Chloride 40 MEQ in Premix 1 BAG IVPB SCH (07:45)
[2024-04-18] MEDS: Potassium Chloride 40 MEQ in Dextrose 5% in Water 1,000 ML IV SCH (08:20)
[2024-04-18] MEDS: Magnesium 2 GM/50 ML(in water) 2 GM in Premix 1 BAG IVPB SCH (08:47)
[2024-04-18] MEDS: Potassium Chloride 20 MEQ TAB PO SCH (08:47)
[2024-04-18] MEDS: Potassium Chloride 20 MEQ in Premix 1 BAG IVPB SCH (08:48)
[2024-04-18] MEDS: Vancomycin HCl 125 MG Capsule PO SCH (16:47)
[2024-04-19 06:08] LABS: #Basophils 0.04 10x3/uL (0.0-0.2); %Basophils 0.8 % (0.0-1.0); %Eosinophils 3.7 % (0.0-10.0); %Lymphocytes 22.8 % (21.0-51.0); %Monocytes 11.8 % (0.0-10.0); %Neutrophils 59.1 % (42.0-75.0); Hematocrit 25.5 % (42.0-52.0); Hemoglobin 8.2 g/dL (14.0-18.0); Mean Corpuscular HGB CONC 32.2 g/dL (32.0-36.0); Mean Corpuscular Hemoglobin 30.5 pg (27.0-31.0); Mean Corpuscular Volume 94.8 fL (78.0-98.0); Mean Platelet Volume 10.6 fL (7.4-10.4); Platelet Count 268 10x3/uL (130-400); RBC Distribution Width 18.2 % (11.5-14.5); Red Blood Cell (RBC) Count 2.69 mill/uL (4.70-6.10)
[2024-04-19 06:35] LABS: ALT (SGPT) Less than 5 U/L (8-55); AST (SGOT) 15 U/L (5-34); Albumin 1.6 g/dL (3.4-4.8); Alkaline Phosphatase 79 U/L (40-110); Bilirubin, Direct 0.3 mg/dL (0.1-0.3); Bilirubin, Total 0.6 mg/dL (0.2-1.2); Phosphorus 2.2 mg/dL (2.3-4.7); Protein, Total 5.5 g/dL (5.8-8.1)
[2024-04-19 06:38] LABS: Anion Gap 11 mmol/L (10-20); BUN (Urea Nitrogen) 46 mg/dL (8.4-25.7); Calc. Creatinine Clearance 89 mL/min (70-130); Calcium 7.6 mg/dL (7.8-10.44); Carbon Dioxide 23 mmol/L (23-31); Chloride 117 mmol/L (98-107); Estimated GFR 67; Glucose 114 mg/dL (83-110); Potassium 3.9 mmol/L (3.5-5.1); Sodium 147 mmol/L (136-145)
[2024-04-19] MEDS: Famotidine 20 MG TAB PO SCH (10:03)
[2024-04-19] MEDS: Albumin 25% 25 GM (100 mL) BOT IVPB SCH (17:32)
[2024-04-20 04:39] LABS: #Basophils 0.04 10x3/uL (0.0-0.2); %Basophils 0.8 % (0.0-1.0); %Eosinophils 2.9 % (0.0-10.0); %Lymphocytes 28.5 % (21.0-51.0); %Monocytes 13.2 % (0.0-10.0); %Neutrophils 52.7 % (42.0-75.0); Hematocrit 24.9 % (42.0-52.0); Mean Corpuscular HGB CONC 32.1 g/dL (32.0-36.0); Mean Corpuscular Hemoglobin 30.8 pg (27.0-31.0); Mean Corpuscular Volume 95.8 fL (78.0-98.0); Mean Platelet Volume 10.9 fL (7.4-10.4); Platelet Count 264 10x3/uL (130-400); RBC Distribution Width 18.2 % (11.5-14.5)
[2024-04-20 05:57] LABS: ALT (SGPT) Less than 5 U/L (8-55); AST (SGOT) 25 U/L (5-34); Albumin 2.1 g/dL (3.4-4.8); Alkaline Phosphatase 75 U/L (40-110); Anion Gap 11 mmol/L (10-20); BUN (Urea Nitrogen) 41 mg/dL (8.4-25.7); Bilirubin, Total 0.6 mg/dL (0.2-1.2); Calc. Creatinine Clearance 92 mL/min (70-130); Calcium 7.7 mg/dL (7.8-10.44); Carbon Dioxide 25 mmol/L (23-31); Chloride 115 mmol/L (98-107); Estimated GFR 70; Globulin 3.5 g/dL (2.4-3.5); Glucose 92 mg/dL (83-110); Potassium 4.2 mmol/L (3.5-5.1); Protein, Total 5.6 g/dL (5.8-8.1); Sodium 147 mmol/L (136-145)
[2024-04-20] MEDS ORDERED: GoLYTELY 4,000 ml Bottle PO SCH (09:00)
[2024-04-20] MEDS: Vancomycin HCl 125 MG Capsule PO SCH (18:02)
[2024-04-21 03:41] LABS: #Basophils 0.05 10x3/uL (0.0-0.2); %Eosinophils 3.2 % (0.0-10.0); %Lymphocytes 30.2 % (21.0-51.0); %Monocytes 13.6 % (0.0-10.0); %Neutrophils 50.2 % (42.0-75.0); Hematocrit 23.4 % (42.0-52.0); Hemoglobin 7.3 g/dL (14.0-18.0); Mean Corpuscular HGB CONC 31.2 g/dL (32.0-36.0); Mean Corpuscular Hemoglobin 30.9 pg (27.0-31.0); Mean Corpuscular Volume 99.2 fL (78.0-98.0); Mean Platelet Volume 10.5 fL (7.4-10.4); Platelet Count 279 10x3/uL (130-400); RBC Distribution Width 17.5 % (11.5-14.5); Red Blood Cell (RBC) Count 2.36 mill/uL (4.70-6.10)
[2024-04-21 04:02] LABS: Anion Gap 8 mmol/L (10-20); BUN (Urea Nitrogen) 32 mg/dL (8.4-25.7); Calc. Creatinine Clearance 113 mL/min (70-130); Calcium 7.7 mg/dL (7.8-10.44); Carbon Dioxide 26 mmol/L (23-31); Chloride 114 mmol/L (98-107); Estimated GFR 90; Glucose 100 mg/dL (83-110); Potassium 4.6 mmol/L (3.5-5.1); Sodium 143 mmol/L (136-145)
[2024-04-22] MEDS: traMADol HCl 50 MG TAB PO SCH (00:48)
[2024-04-22 04:34] LABS: #Basophils 0.05 10x3/uL (0.0-0.2); %Eosinophils 2.9 % (0.0-10.0); %Lymphocytes 28.4 % (21.0-51.0); %Monocytes 13.3 % (0.0-10.0); %Neutrophils 52.8 % (42.0-75.0); Hematocrit 25.5 % (42.0-52.0); Mean Corpuscular HGB CONC 31.4 g/dL (32.0-36.0); Mean Corpuscular Hemoglobin 30.7 pg (27.0-31.0); Mean Corpuscular Volume 97.7 fL (78.0-98.0); Mean Platelet Volume 10.5 fL (7.4-10.4); Platelet Count 340 10x3/uL (130-400); RBC Distribution Width 17.4 % (11.5-14.5); Red Blood Cell (RBC) Count 2.61 mill/uL (4.70-6.10)
[2024-04-22 04:53] LABS: Anion Gap 8 mmol/L (10-20); BUN (Urea Nitrogen) 25 mg/dL (8.4-25.7); Calc. Creatinine Clearance 134 mL/min (70-130); Calcium 7.8 mg/dL (7.8-10.44); Carbon Dioxide 25 mmol/L (23-31); Chloride 112 mmol/L (98-107); Estimated GFR 92; Glucose 92 mg/dL (83-110); Potassium 4.7 mmol/L (3.5-5.1); Sodium 140 mmol/L (136-145)
[2024-04-22] MEDS: Furosemide 20 MG TAB PO SCH (09:38)
[2024-04-23 03:43] LABS: #Basophils 0.04 10x3/uL (0.0-0.2); %Basophils 0.7 % (0.0-1.0); %Eosinophils 2.6 % (0.0-10.0); %Lymphocytes 28.7 % (21.0-51.0); %Monocytes 13.4 % (0.0-10.0); %Neutrophils 53.1 % (42.0-75.0); Hemoglobin 8.2 g/dL (14.0-18.0); Mean Corpuscular HGB CONC 31.5 g/dL (32.0-36.0); Mean Corpuscular Hemoglobin 30.9 pg (27.0-31.0); Mean Corpuscular Volume 98.1 fL (78.0-98.0); Mean Platelet Volume 10.3 fL (7.4-10.4); Platelet Count 391 10x3/uL (130-400); RBC Distribution Width 17.3 % (11.5-14.5); Red Blood Cell (RBC) Count 2.65 mill/uL (4.70-6.10)
[2024-04-23 03:59] LABS: Anion Gap 9 mmol/L (10-20); BUN (Urea Nitrogen) 19 mg/dL (8.4-25.7); Calc. Creatinine Clearance 132 mL/min (70-130); Calcium 7.7 mg/dL (7.8-10.44); Carbon Dioxide 25 mmol/L (23-31); Chloride 111 mmol/L (98-107); Estimated GFR 92; Glucose 80 mg/dL (83-110); Potassium 4.7 mmol/L (3.5-5.1); Sodium 140 mmol/L (136-145)
[2024-04-23] MEDS: Famotidine 20 MG TAB PO SCH (09:00)
[2024-04-24 04:38] LABS: #Basophils 0.06 10x3/uL (0.0-0.2); %Basophils 1.2 % (0.0-1.0); %Eosinophils 1.9 % (0.0-10.0); %Lymphocytes 29.8 % (21.0-51.0); %Monocytes 15.1 % (0.0-10.0); %Neutrophils 51.2 % (42.0-75.0); Hemoglobin 7.5 g/dL (14.0-18.0); Mean Corpuscular HGB CONC 31.3 g/dL (32.0-36.0); Mean Corpuscular Hemoglobin 30.6 pg (27.0-31.0); Mean Platelet Volume 10.5 fL (7.4-10.4); Platelet Count 407 10x3/uL (130-400); RBC Distribution Width 17.2 % (11.5-14.5); Red Blood Cell (RBC) Count 2.45 mill/uL (4.70-6.10)
[2024-04-24 05:03] LABS: Anion Gap 7 mmol/L (10-20); BUN (Urea Nitrogen) 15 mg/dL (8.4-25.7); Calc. Creatinine Clearance 128 mL/min (70-130); Calcium 7.8 mg/dL (7.8-10.44); Carbon Dioxide 27 mmol/L (23-31); Chloride 109 mmol/L (98-107); Estimated GFR 92; Glucose 87 mg/dL (83-110); Potassium 4.4 mmol/L (3.5-5.1); Sodium 139 mmol/L (136-145)
[2024-04-24] MEDS: Vancomycin HCl 125 MG Capsule PO SCH (17:51)
[2024-04-24] MEDS: Midodrine HCl 5 MG TAB PO SCH (21:17)
[2024-04-25 04:03] LABS: #Basophils 0.06 10x3/uL (0.0-0.2); %Basophils 1.1 % (0.0-1.0); %Eosinophils 2.4 % (0.0-10.0); %Lymphocytes 29.2 % (21.0-51.0); %Monocytes 15.7 % (0.0-10.0); %Neutrophils 51.1 % (42.0-75.0); Hemoglobin 7.2 g/dL (14.0-18.0); Mean Corpuscular HGB CONC 31.3 g/dL (32.0-36.0); Mean Corpuscular Hemoglobin 30.9 pg (27.0-31.0); Mean Corpuscular Volume 98.7 fL (78.0-98.0); Mean Platelet Volume 10.2 fL (7.4-10.4); Platelet Count 436 10x3/uL (130-400); RBC Distribution Width 17.2 % (11.5-14.5); Red Blood Cell (RBC) Count 2.33 mill/uL (4.70-6.10)
[2024-04-25 04:20] LABS: Anion Gap 8 mmol/L (10-20); BUN (Urea Nitrogen) 14 mg/dL (8.4-25.7); Calc. Creatinine Clearance 144 mL/min (70-130); Calcium 7.9 mg/dL (7.8-10.44); Carbon Dioxide 27 mmol/L (23-31); Chloride 109 mmol/L (98-107); Estimated GFR 95; Glucose 86 mg/dL (83-110); Potassium 4.1 mmol/L (3.5-5.1); Sodium 140 mmol/L (136-145)
[2024-04-25 15:02] LABS: Anion Gap 13 mmol/L (10-20); BUN (Urea Nitrogen) 83 mg/dL (8.4-25.7); Calc. Creatinine Clearance 39 mL/min (70-130); Calcium 8.3 mg/dL (7.6-10.4); Carbon Dioxide 25 mmol/L (23-31); Chloride 113 mmol/L (98-107); Estimated GFR 25; Glucose 112 mg/dL (83-110); Potassium 3.3 mmol/L (3.5-5.1); Sodium 148 mmol/L (136-145)
[2024-04-25 15:03] LABS: Hematocrit 21.5 % (42.0-52.0); Mean Corpuscular HGB CONC 32.6 g/dL (32.0-36.0); Mean Corpuscular Hemoglobin 30.6 pg (27.0-31.0); Mean Corpuscular Volume 93.9 fL (78.0-98.0); Mean Platelet Volume 10.8 fL (7.4-10.4); Neutrophil 47 % (42-75); Platelet Count 235 10x3/uL (130-400); RBC Distribution Width 17.1 % (11.5-14.5); Red Blood Cell (RBC) Count 2.29 mill/uL (4.70-6.10)
[2024-04-25 15:04] LABS: Anisocytosis SLIGHT = 6-15 cells (100X) (0-5/hpf); Band 28 % (5-11); Eosinophils 1 % (0-10); Lymphocytes 10 % (21-51); Monocytes 13 % (0-10)
[2024-04-25 15:05] LABS: Hypochromia SLIGHT = 6-15 cells (100X) (0-5/hpf); Poikilocytosis SLIGHT = 6-15 cells (100X) (0-5/hpf); Polychromasia SLIGHT = 2-3 cells (100X) (0-2/hpf)
[2024-04-25 15:06] LABS: Platelet Adequacy Comment Platelets Normal
[2024-04-26 04:28] LABS: #Basophils 0.07 10x3/uL (0.0-0.2); %Basophils 1.4 % (0.0-1.0); %Eosinophils 2.6 % (0.0-10.0); %Lymphocytes 26.9 % (21.0-51.0); %Monocytes 17.7 % (0.0-10.0); Hematocrit 21.9 % (42.0-52.0); Hemoglobin 6.9 g/dL (14.0-18.0); Mean Corpuscular HGB CONC 31.5 g/dL (32.0-36.0); Mean Corpuscular Hemoglobin 31.2 pg (27.0-31.0); Mean Corpuscular Volume 99.1 fL (78.0-98.0); Mean Platelet Volume 10.3 fL (7.4-10.4); Platelet Count 432 10x3/uL (130-400); RBC Distribution Width 16.9 % (11.5-14.5); Red Blood Cell (RBC) Count 2.21 mill/uL (4.70-6.10)
[2024-04-26 04:40] LABS: Anion Gap 8 mmol/L (10-20); BUN (Urea Nitrogen) 11 mg/dL (8.4-25.7); Calc. Creatinine Clearance 145 mL/min (70-130); Calcium 7.6 mg/dL (7.8-10.44); Carbon Dioxide 28 mmol/L (23-31); Chloride 107 mmol/L (98-107); Estimated GFR 95; Glucose 83 mg/dL (83-110); Potassium 3.9 mmol/L (3.5-5.1); Sodium 139 mmol/L (136-145)
[2024-04-26 17:19] LABS: Hematocrit 28.1 % (42.0-52.0)
[2024-04-27 06:15] LABS: %Basophils 1.8 % (0.0-1.0); %Eosinophils 1.6 % (0.0-10.0); %Lymphocytes 22.9 % (21.0-51.0); %Neutrophils 56.3 % (42.0-75.0); Hematocrit 25.5 % (42.0-52.0); Hemoglobin 8.2 g/dL (14.0-18.0); Mean Corpuscular HGB CONC 32.2 g/dL (32.0-36.0); Mean Corpuscular Hemoglobin 30.5 pg (27.0-31.0); Mean Corpuscular Volume 94.8 fL (78.0-98.0); Mean Platelet Volume 9.7 fL (7.4-10.4); Platelet Count 417 10x3/uL (130-400); RBC Distribution Width 18.2 % (11.5-14.5); Red Blood Cell (RBC) Count 2.69 mill/uL (4.70-6.10)
[2024-04-27 06:37] LABS: Anion Gap 11 mmol/L (10-20); BUN (Urea Nitrogen) 10 mg/dL (8.4-25.7); Calc. Creatinine Clearance 144 mL/min (70-130); Calcium 7.8 mg/dL (7.8-10.44); Carbon Dioxide 25 mmol/L (23-31); Chloride 107 mmol/L (98-107); Estimated GFR 95; Glucose 81 mg/dL (83-110); Potassium 3.9 mmol/L (3.5-5.1); Sodium 139 mmol/L (136-145)
[2024-04-28 10:18] VITALS: BMI 36.3
[2024-05-01 19:12] VITALS: TEMP 98.7
[2024-05-01 19:58] VITALS: BP 121/73
== END 2024-05-01 20:41 | DRG 871 ==
LOC: EEVIPCON 20:56 → 2NO 20:56 → IMCU/EMU 03-26 15:07 → 2SE 03-30 15:37 → 2NO 04-01 01:13 → CCU 04-02 04:47 → T4-A 04-03 13:35 → IMCU/EMU 04-09 18:41 → PCU 04-17 19:26 → T4-A 04-26 20:57
PROVIDERS: ADMIT Hospitalist; ATTEND Internal Medicine
PROC: 3E03329 Introduction of Other Anti-infective into Peripheral Vein, Percutaneous Approach (ICD-10-PCS; 2024-03-22)
PROC: 0D9670Z Drainage of Stomach with Drainage Device, Via Natural or Artificial Opening (ICD-10-PCS; principal; 2024-04-12)
PROC: 30233N1 Transfusion of Nonautologous Red Blood Cells into Peripheral Vein, Percutaneous Approach (ICD-10-PCS; 2024-04-15)
PROC: 0DH63UZ Insertion of Feeding Device into Stomach, Percutaneous Approach (ICD-10-PCS; 2024-04-16)
PROC: XW0H7X8 Introduction of Broad Consortium Microbiota-based Live Biotherapeutic Suspension into Lower GI, Via Natural or Artificial Opening, New Technology Group 8 (ICD-10-PCS; 2024-04-16)
DX: A41.4 Sepsis due to anaerobes (principal); G92.8 Other toxic encephalopathy; I50.23 Acute on chronic systolic (congestive) heart failure; J96.01 Acute respiratory failure with hypoxia; R65.21 Severe sepsis with septic shock; N17.0 Acute kidney failure with tubular necrosis; J69.0 Pneumonitis due to inhalation of food and vomit; E87.1 Hypo-osmolality and hyponatremia; L03.116 Cellulitis of left lower limb; E87.20 Acidosis, unspecified; A04.72 Enterocolitis due to Clostridium difficile, not specified as recurrent; N39.0 Urinary tract infection, site not specified; E87.0 Hyperosmolality and hypernatremia; Z66 Do not resuscitate; J44.9 Chronic obstructive pulmonary disease, unspecified; E87.5 Hyperkalemia; Z51.5 Encounter for palliative care; E66.01 Morbid (severe) obesity due to excess calories; K21.9 Gastro-esophageal reflux disease without esophagitis; E87.6 Hypokalemia; E88.09 Other disorders of plasma-protein metabolism, not elsewhere classified; N40.0 Benign prostatic hyperplasia without lower urinary tract symptoms; I25.10 Atherosclerotic heart disease of native coronary artery without angina pectoris; F31.9 Bipolar disorder, unspecified; Z85.46 Personal history of malignant neoplasm of prostate
CPT/HCPCS: 36415; 36416; 36430; 36600; 44500; 70450; 71045; 71275; 74018; 74176; 74177; 74340; 76705; 76770; 78226; 80048; 80053; 80076; 80202; 81001; 82040; 82728; 82805; 83540; 83550; 83605; 83735; 83880; 84100; 84484; 85025; 85610; 85730; 86850; 86900; 86901; 87040; 87086; 87324; 87449; 93005; 93010; 93970; 94640; 94660; 96361; 96374; 97139; 99285; A4217; A9537; C1769; C1887; J0692; J0696; J1644; J1720; J1815; J1940; J2272; J2405; J2470; J2765; J3370; J3475; J3480; J3490; J7030; J7042; J7050; J7070; J7512; J7620; J7644; P9016; P9047; Q0162; Q9967